=== PATIENT | female | born 1960 | race Caucasian/White ===

== ENCOUNTER 2016-09-11 11:42 | Emergency (ER) | payer MEDICAID, OTHER ==
[~2016-09-11] VITALS: Ht 162.6 cm; Wt 109.0 kg
[~2016-09-11 11:42] MED LIST: ALPR0.5T3 PO; CREON6 PO; ESTR1TAB PO; ZOLO50TA PO
[2016-09-11 11:45] VITALS: BP 154/87; PULSE 79; RESP 18; TEMP 98.2; O2SAT 97
--- NOTE | 2016-09-11 12:01 | PD ---
Physical Exam Date Seen by Provider: Sep 11, 2016 Time Seen by Provider: 11:58 Narrative 55 year old female presents to the emergency department for evaluation of epigastric abdominal pain for 5 days. She reports a history of gastroparesis and has had epigastric pain in the past, but this episode is worse. She reports decreased appetite, constipation, nausea/vomiting. Patient awaiting bed placement. Data Data Last Documented VS Vital Signs Date Time Temp Pulse Resp B/P Pulse Ox O2 Delivery O2 Flow Rate FiO2 09/11/16 11:45 98.2 79 18 154/87 97 MDM Supervised Visit with COCO: Miranda Price Sep 11, 2016 12:00
[2016-09-11] MEDS ORDERED: SODIUM CHLORIDE 0.9% FLUSH 10 ML FLUSH IV FLUSH PRN ×2 (12:15→12:30)
[2016-09-11] MEDS ORDERED: XANA1TAB2 PO (12:23)
--- NOTE | 2016-09-11 12:25 | PD ---
HPI Chief Complaint: Abdominal Pain Time Seen by Provider: 12:14 Travel History International Travel<30 days: No Contact w/Intl Traveler<30days: No Traveled to known affect area: No History of Present Illness HPI Patient is a 55-year-old female with stated history of previous cholecystectomy , appendectomy, hysterectomy and Gilmar-en-Y gastric bypass, gastroparesis who presents the emergency department with complaint of epigastric abdominal pain. Patient is not now approximate 5 days of crampy pain in the epigastrium. States that this is similar to her history of gastroparesis but more severe. She's had nausea, some vomiting. The vomiting has seemed to improve, but patient admits that she really hasn't been taking anything by mouth for fear of emesis. She has been having some persistent dry heaving. Notes associated constipation. Took an enema and MiraLAX with some product. She denies any history of bowel obstruction but has had several abdominal surgeries for lysis of adhesions due to pain. No fevers or chills, urinary symptoms. No hematemesis or hematochezia. PFSH Past Medical History Blood Disorders: No Anxiety: Yes Cancer: No Cardiovascular Problems: No Endocrine: No Genitourinary: Yes Immune Disorder: No Musculoskeletal: No Reproductive: No Respiratory: No ?: Not Past Surgical History Abdominal Surgery: Yes (GALLBLADDER 1998) AICD: No Arteriovenous Shunt: No Gynecologic Surgery: Yes (HYSTERECTOMY 1990, TUBAL LIGATION 1989) Insulin Pump: No Joint Replacement: No Oral Surgery: Yes (TONSILS 1992) Pacemaker: No Social History Alcohol Use: No Tobacco Use: Yes Substance Use: No Allergies-Medications (Allergen,Severity, Reaction): Coded Allergies: No Known Allergies (Verified , 09/11/16) Reported Meds & Prescriptions Reported Meds & Active Scripts Active Estradiol 1 Mg Tab 1 Mg PO DAILY Reported Xanax (Alprazolam) 1 Mg Tab 1 Mg PO Q6H PRN Review of Systems Except as stated in HPI: all other systems reviewed are Neg Physical Exam Narrative GENERAL: Well-appearing female in no acute distress SKIN: Focused skin assessment warm/dry. HEAD: Normocephalic. EYES: No scleral icterus. No injection or drainage. ENT: Mucous membranes pink and moist. NECK: Supple CARDIOVASCULAR: Regular rate and rhythm. No murmur appreciated. RESPIRATORY: No accessory muscle use. Clear to auscultation. Breath sounds equal bilaterally. GASTROINTESTINAL: Abdomen soft, moderate epigastric tenderness to palpation without rebound or guarding, nondistended. Well-healed old surgical scars MUSCULOSKELETAL: Gait normal NEUROLOGICAL: Awake and alert. Normal speech. PSYCHIATRIC: Appropriate mood and affect; insight and judgment normal. Data Data Last Documented VS Vital Signs Date Time Temp Pulse Resp B/P Pulse Ox O2 Delivery O2 Flow Rate FiO2 09/11/16 13:00 70 16 149/78 97 Room Air 09/11/16 11:45 98.2 Orders Complete Blood Count With Diff (09/11/16 12:15) Comprehensive Metabolic Panel (09/11/16 12:15) Lipase (09/11/16 12:15) Iv Access Insert/Monitor (09/11/16 12:15) Sodium Chloride 0.9% Flush (Ns Flush) (09/11/16 12:15) Ct Abd/Pel W Iv Contrast(Rout) (09/11/16 12:22) Ecg Monitoring (09/11/16 12:22) Oximetry (09/11/16 12:22) Morphine Inj (Morphine Inj) (09/11/16 12:30) Ondansetron Inj (Zofran Inj) (09/11/16 12:30) Sodium Chloride 0.9% Flush (Ns Flush) (09/11/16 12:30) Oral Contrast - Adult (09/11/16 12:36) Diatrizoate Liq ( Gastroignacia Liq) (09/11/16 12:58) Iohexol 350 Inj (Omnipaque 350 Inj) (09/11/16 14:39) Labs Laboratory Tests Test 09/11/16 12:40 White Blood Count 5.2 TH/MM3 Red Blood Count 4.44 MIL/MM3 Hemoglobin 11.5 GM/DL Hematocrit 35.6 % Mean Corpuscular Volume 80.1 FL Mean Corpuscular Hemoglobin 25.9 PG Mean Corpuscular Hemoglobin 32.3 % Concent Red Cell Distribution Width 15.6 % Platelet Count 177 TH/MM3 Mean Platelet Volume 7.6 FL Neutrophils (%) (Auto) 70.3 % Lymphocytes (%) (Auto) 19.4 % Monocytes (%) (Auto) 9.1 % Eosinophils (%) (Auto) 0.7 % Basophils (%) (Auto) 0.5 % Neutrophils # (Auto) 3.6 TH/MM3 Lymphocytes # (Auto) 1.0 TH/MM3 Monocytes # (Auto) 0.5 TH/MM3 Eosinophils # (Auto) 0.0 TH/MM3 Basophils # (Auto) 0.0 TH/MM3 CBC Comment DIFF FINAL Differential Comment Sodium Level 142 MEQ/L Potassium Level 3.7 MEQ/L Chloride Level 105 MEQ/L Carbon Dioxide Level 30.5 MEQ/L Anion Gap 7 MEQ/L Blood Urea Nitrogen 12 MG/DL Creatinine 0.66 MG/DL Estimat Glomerular Filtration 94 ML/MIN Rate Random Glucose 91 MG/DL Calcium Level 8.9 MG/DL Total Bilirubin 0.6 MG/DL Aspartate Amino Transf 14 U/L (AST/SGOT) Alanine Aminotransferase 12 U/L (ALT/SGPT) Alkaline Phosphatase 80 U/L Total Protein 7.4 GM/DL Albumin 3.9 GM/DL Lipase 157 U/L [facility] Medical Decision Making Medical Screen Exam Complete: Yes Emergency Medical Condition: Yes Medical Record Reviewed: Yes Differential Diagnosis 55-year-old female with multiple abdominal surgeries including Gilmar-en-Y gastric bypass here with complaint of 5 days of epigastric pain, nausea vomiting and constipation. Differential includes gastritis, peptic ulcer disease, gastroparesis, pancreatitis, hepatobiliary pathology, bowel obstruction , internal hernia. Narrative Course Patient placed on monitor, IV established and blood obtained. Given morphine and Zofran for symptom control. CBC, CMP, lipase obtained and unremarkable. Patient still uncomfortable and given repeat doses Zofran, Dilaudid. CT abdomen and pelvis showed mild biliary ductal dilatation likely from her previous cholecystectomy. Previous bowel surgery. No free air or abscess, fluid or evidence of obstruction. 2.6 cm cystic mass in the left adnexal region which will need outpatient follow-up. Patient was able to tolerate oral contrast without any difficulties and will be discharged home. Diagnosis Primary Impression: Gastroparesis Additional Impressions: Gastritis Qualified Code: K29.70 - Gastritis without bleeding, unspecified chronicity, unspecified gastritis type Ovarian cyst Qualified Code: N83.202 - Cyst of left ovary Referrals: Primary Care Physician call for appointment Additional Instructions: Nausea and pain medications as needed. Follow-up with primary for outpatient workup of ovarian cysts as discussed. Med/Other Pt SpecificInfo: Prescription(s) given Scripts Hydrocodone-Acetaminophen (Bennett)5-325 mg Tab1-2 Tab PO Q6H PRN (PAIN) #20 TAB Ref 0 Prov:Jeri Fitch MD 09/11/16 Ondansetron Odt (Zofran Odt)8 Mg Tab8 Mg SL Q8H PRN (NAUSEA OR VOMITING) #20 TAB Ref 0 Prov:Jeri Fitch MD 09/11/16 Disposition: 01 DISCHARGE HOME Condition: Stable Jeri Fitch MD Sep 11, 2016 12:25
[2016-09-11] MEDS ORDERED: ONDANSETRON HCL 4 MG/2 ML VIAL IVP ONE ×2 (12:30→15:30)
[2016-09-11] MEDS ORDERED: MORPHINE SULFATE 4 MG/ML INJ IV PUSH ONE (12:30)
[2016-09-11 12:52] LABS: AUTOMATED NEUTROPHIL # 3.6 TH/MM3 (1.8-7.7); BASOPHIL % 0.5 % (0.0-2.0); EOSINOPHIL % 0.7 % (0.0-4.0); HEMATOCRIT 35.6 % (35.0-46.0); HEMO FLAGS DIFF FINAL; LYMPH % 19.4 % (9.0-44.0); MEAN CELL VOLUME 80.1 FL (80.0-100.0); MEAN CORPUSCULAR HEMOGLOBIN 25.9 PG (27.0-34.0); MEAN CORPUSCULAR HGB CONC 32.3 % (32.0-36.0); MONO % 9.1 % (0.0-8.0); NEUT % 70.3 % (16.0-70.0); PLATELET COUNT 177 TH/MM3 (150-450); RED BLOOD COUNT 4.44 MIL/MM3 (4.00-5.30); RED CELL DISTRIBUTION WIDTH 15.6 % (11.6-17.2); WHITE BLOOD COUNT 5.2 TH/MM3 (4.0-11.0)
[2016-09-11] MEDS ORDERED: DIATRIZOATE MEGLUM/DIATRIZOATE SOD 9 ML CUP ONE (12:58)
[2016-09-11 13:00] VITALS: BP 149/78; PULSE 70; RESP 16; O2SAT 97
[2016-09-11 13:08] LABS: ALT (GPT) 12 U/L (10-53); ANION GAP 7 MEQ/L (5-15); AST (GOT) 14 U/L (15-37); BICARBONATE 30.5 MEQ/L (21.0-32.0); BLOOD UREA NITROGEN 12 MG/DL (7-18); CHLORIDE 105 MEQ/L (98-107); GLOMERULAR FILTRATION RATE 94 ML/MIN (>89); POTASSIUM 3.7 MEQ/L (3.5-5.1); SODIUM (NA) 142 MEQ/L (136-145)
[2016-09-11 13:11] LABS: ALKALINE PHOSPHATASE 80 U/L (45-117); TOTAL BILIRUBIN ADULT 0.6 MG/DL (0.2-1.0)
[2016-09-11] MEDS ORDERED: IOHEXOL 350 MG/ML 10 ML VIAL (for RAD DIAG) IV ONE (14:39)
--- NOTE | 2016-09-11 15:03 | RADRPT ---
EXAM DATE/TIME: 09/11/2016 14:21 [facility] COMPARISON: No previous studies available for comparison. INDICATIONS : Epigastric pain with nausea, vomiting, and constipation. IV CONTRAST: 90 cc Omnipaque 350 (iohexol) IV ORAL CONTRAST: Prescribed oral contrast ingested. RADIATION DOSE: 9.96 CTDIvol (mGy) MEDICAL HISTORY : Gastroparesis. SURGICAL HISTORY : Appendectomy. Cholecystectomy. Hysterectomy Gastric bypass ENCOUNTER: Initial ACUITY: 4 - 6 days PAIN SCALE: 4/10 LOCATION: Bilateral upper quadrant TECHNIQUE: Volumetric scanning of the abdomen and pelvis was performed. Using automated exposure control and adjustment of the mA and/or kV according to patient size, radiation dose was kept as low as reasonably achievable to obtain optimal diagnostic quality images. FINDINGS: Lung bases are clear. There is no pericardial effusion. There is mild intrahepatic bi liary ductal dilatation with the common duct dilated into the head of the pancreas. Common duct in th e head of the pancreas measures 8 mm. Spleen is unremarkable. Pancreas other than dilated common anand t is unremarkable. There is mild dilatation of the pancreatic duct without calcifications. Adrenal glands are unremarkable. There is symmetrical renal function without evidence of renal mass. Previous abdominal surgery is noted. Evidence for previous bowel surgery is noted. Pelvic contents are remarkable only for a small 2.6 cm cystic mass in the left adnexal region. Abdom inal wall is intact. CONCLUSION: 1. Mild intrahepatic biliary ductal dilatation with prominent common duct. 2. Evidence for extensive previous bowel surgery. 3. 2.6 cm cystic mass in the left adnexal region. 4. There is no free fluid, abscess or free air. Tyson Iqbal MD FACR on September 11, 2016 at 14:51 Board Certified Radiologist. This report was verified electronically.
[2016-09-11] MEDS ORDERED: NORC5TAB PO (15:20)
[2016-09-11] MEDS ORDERED: ZOFR8TAB4 SL (15:20)
[2016-09-11] MEDS ORDERED: HYDROmorphone HCL PF 1 MG/ML VIAL IVS ONE (15:30)
[2016-09-11] MEDS ORDERED: ACETAMINOPHEN/HYDROcodone 325 MG/5 MG TAB PO ONE (15:30)
[2016-09-22] MEDS ORDERED: PERC5TAB12 PO (10:44)
[2016-09-22] MEDS ORDERED: PERI8.6T PO (10:44)
[2016-10-28] MEDS ORDERED: OMEP40CA2 PO (14:56)
[2016-10-28] MEDS ORDERED: AMIT8CAP6 PO (14:56)
[2016-10-28] MEDS ORDERED: PROC5TAB PO (14:56)
[2016-10-28] MEDS ORDERED: XANA1TAB2 PO (14:58)
== END 2016-09-11 16:11 | disposition home or self-care (01) ==
LOC: NEPD 11:42
DX: K31.84 Gastroparesis (principal); K29.70 Gastritis, unspecified, without bleeding; N83.202 Unspecified ovarian cyst, left side; K59.00 Constipation, unspecified; R11.2 Nausea with vomiting, unspecified; Z72.0 Tobacco use
CPT/HCPCS: 74177; 80053; 83690; 85025; 96374; 96375; 96376; 99284; J1170; J2270; J2405; Q9963; Q9967

== ENCOUNTER 2016-09-16 10:14 | Emergency (ER) | payer MEDICAID ==
[~2016-09-16] VITALS: Ht 165.1 cm; Wt 64.0 kg
[~2016-09-16 10:14] MED LIST changes: -ALPR0.5T3 PO; -CREON6 PO; +NORC5TAB PO; +XANA1TAB2 PO; +ZOFR8TAB4 SL; -ZOLO50TA PO
[2016-09-16 10:17] VITALS: BP 126/79; PULSE 86; RESP 18; TEMP 97.9; O2SAT 99
[2016-09-16] MEDS ORDERED: SODIUM CHLOR 0.9% 1000 ML INJ 1,000 ML IV SCH (10:44)
[2016-09-16] MEDS ORDERED: ERYTHROMYCIN EC 250 MG TABEC PO ONE (10:45)
[2016-09-16] MEDS ORDERED: KETOROLAC TROMETHAMINE 30 MG/ML (IVP) VIAL IV PUSH ONE (10:45)
[2016-09-16] MEDS ORDERED: METOCLOPRAMIDE HCL 10 MG/2 ML VIAL IV PUSH ONE (10:45)
[2016-09-16] MEDS ORDERED: SODIUM CHLORIDE 0.9% FLUSH 10 ML FLUSH IV FLUSH PRN (10:45)
[2016-09-16] MEDS ORDERED: CREO3000 PO (10:52)
--- NOTE | 2016-09-16 10:55 | PD ---
HPI Chief Complaint: Abdominal Pain Time Seen by Provider: 10:35 Travel History International Travel<30 days: No Contact w/Intl Traveler<30days: No Traveled to known affect area: No History of Present Illness HPI This is a 55-year-old female who has a history of multiple abdominal surgeries including an appendectomy, cholecystectomy, Gilmar-en-Y gastric bypass, hysterectomy and a known diagnosis of gastroparesis who presents to the emergency department with 2 weeks of epigastric abdominal pain described as constant, severe, worse with eating, associated with multiple episodes of vomiting. She denies any fevers or chills. She says she's had pain like this but never this prolonged and constant. She was hospitalized last January at [facility] for similar symptoms. She used to follow with Dr. Bojorquez but she was unable to pay her hospital bill so that office will no longer see her. She was seen in the emergency department one week ago and had a normal CT scan and normal labs. She was discharged on Guin. She re-presents with worsening symptoms that have not improved. PFSH Past Medical History Blood Disorders: No Anxiety: Yes Cancer: No Cardiovascular Problems: No Endocrine: No Gastrointestinal Disorders: Yes (GASTROPARESIS) Genitourinary: Yes Immune Disorder: No Musculoskeletal: No Reproductive: No Respiratory: No Seizures: Yes (SEIZURES R/T "STRESS OR PAIN") ?: Not : 4 Para: 3 Tubal Ligation: Yes Past Surgical History Abdominal Surgery: Yes (GALLBLADDER 1998, abd adhesions) AICD: No Appendectomy: Yes Arteriovenous Shunt: No Cholecystectomy: Yes Gynecologic Surgery: Yes (HYSTERECTOMY 1990, TUBAL LIGATION 1989) Hysterectomy: Yes Insulin Pump: No Joint Replacement: No Oral Surgery: Yes (TONSILS 1992) Pacemaker: No Other Surgery: Yes (HERNIA REPAIR WITH MESH ) Social History Alcohol Use: No Tobacco Use: No (DENIES) Substance Use: Yes (MARIJUANA OCCASIONALLY ) Allergies-Medications (Allergen,Severity, Reaction): Coded Allergies: No Known Allergies (Verified , 09/16/16) Reported Meds & Prescriptions Reported Meds & Active Scripts Active Zofran Odt (Ondansetron Odt) 8 Mg Tab 8 Mg SL Q8H PRN Estradiol 1 Mg Tab 1 Mg PO DAILY Reported Creon (Pancrelipase) 3,000-9,500-15,000 Units Cap 1 Cap PO TIDPC Xanax (Alprazolam) 1 Mg Tab 1 Mg PO Q6H PRN Review of Systems Except as stated in HPI: all other systems reviewed are Neg Physical Exam Narrative GENERAL: Tearful, uncomfortable appearing SKIN: Focused skin assessment warm and dry. HEAD: Atraumatic. Normocephalic. EYES: Pupils equal and round. No injection or drainage. ENT: Moist mucous membranes NECK: Trachea midline. CARDIOVASCULAR: Regular rate and rhythm. No murmur appreciated. RESPIRATORY: Clear to auscultation. Breath sounds equal bilaterally. GASTROINTESTINAL: Abdomen soft, diffusely tender to palpation with no rebound or guarding. MUSCULOSKELETAL: No obvious deformities. NEUROLOGICAL: Awake and alert. No obvious cranial nerve deficits. Moving all extremities. PSYCHIATRIC: Appropriate mood and affect; insight and judgment normal. Data Data Last Documented VS Vital Signs Date Time Temp Pulse Resp B/P Pulse Ox O2 Delivery O2 Flow Rate FiO2 09/16/16 10:17 97.9 86 18 126/79 99 Room Air Orders Complete Blood Count With Diff (09/16/16 10:44) Comprehensive Metabolic Panel (09/16/16 10:44) Lipase (09/16/16 10:44) Urinalysis - C+S If Indicated (09/16/16 10:44) Iv Access Insert/Monitor (09/16/16 10:44) Ecg Monitoring (09/16/16 10:44) Oximetry (09/16/16 10:44) Sodium Chlor 0.9% 1000 Ml Inj (Ns 1000 M (09/16/16 10:44) Sodium Chloride 0.9% Flush (Ns Flush) (09/16/16 10:45) Abdomen, Kub Only (09/16/16 10:44) Metoclopramide Inj (Reglan Inj) (09/16/16 10:45) Ketorolac Inj (Toradol Inj) (09/16/16 10:45) Erythromycin Ec (Erythromycin Ec) (09/16/16 10:45) Hydromorphone Pf Inj (Dilaudid Pf Inj) (09/16/16 11:00) Labs Laboratory Tests Test 09/16/16 10:55 White Blood Count 5.4 TH/MM3 Red Blood Count 4.51 MIL/MM3 Hemoglobin 11.9 GM/DL Hematocrit 36.2 % Mean Corpuscular Volume 80.3 FL Mean Corpuscular Hemoglobin 26.5 PG Mean Corpuscular Hemoglobin 33.0 % Concent Red Cell Distribution Width 15.8 % Platelet Count 169 TH/MM3 Mean Platelet Volume 7.7 FL Neutrophils (%) (Auto) 77.3 % Lymphocytes (%) (Auto) 14.4 % Monocytes (%) (Auto) 7.7 % Eosinophils (%) (Auto) 0.3 % Basophils (%) (Auto) 0.3 % Neutrophils # (Auto) 4.2 TH/MM3 Lymphocytes # (Auto) 0.8 TH/MM3 Monocytes # (Auto) 0.4 TH/MM3 Eosinophils # (Auto) 0.0 TH/MM3 Basophils # (Auto) 0.0 TH/MM3 CBC Comment DIFF FINAL Differential Comment Sodium Level 142 MEQ/L Potassium Level 3.5 MEQ/L Chloride Level 104 MEQ/L Carbon Dioxide Level 30.9 MEQ/L Anion Gap 7 MEQ/L Blood Urea Nitrogen 14 MG/DL Creatinine 0.62 MG/DL Estimat Glomerular Filtration 101 ML/MIN Rate Random Glucose 85 MG/DL Calcium Level 8.9 MG/DL Total Bilirubin 0.6 MG/DL Aspartate Amino Transf 13 U/L (AST/SGOT) Alanine Aminotransferase 18 U/L (ALT/SGPT) Alkaline Phosphatase 119 U/L Total Protein 7.2 GM/DL Albumin 3.8 GM/DL Lipase 132 U/L [facility] Medical Decision Making Medical Screen Exam Complete: Yes Emergency Medical Condition: Yes Interpretation(s) afebrile, no tachycardia, normotensive No leukocytosis Electrolytes are reassuring Lipase is normal KUB: No acute process Differential Diagnosis Gastritis, peptic ulcer disease, gastroparesis, pancreatitis and bowel obstruction Narrative Course This is a 55-year-old female who has a history of gastroparesis and recurrent chronic abdominal pain who presents to the emergency department with abdominal pain and vomiting that's been present for 2 weeks. She does not appear dehydrated on exam. She was placed on a monitor and an IV was established. Labs are reassuring. A KUB was obtained which was reassuring. Patient just had a CT abdomen and pelvis on 09/11 which was reassuring. She was given IV hydration, Reglan and erythromycin. Her symptoms improved. Patient follows with Dr. Mejia in the resident clinic. I advised her to follow-up with her primary care physician to obtain a referral for GI. She could have an ulcer or gastritis which are contributing to her symptoms. She'll be discharged on erythromycin and Reglan. Diagnosis Primary Impression: Chronic abdominal pain Patient Instructions: General Instructions Additional Instructions: If you develop severe or worsening abdominal pain, fever>100.4, persistent vomiting or inability to eat or drink return to the emergency department immediately. Follow up with your primary care physician in 1-2 days for a check-up. Med/Other Pt SpecificInfo: Prescription(s) given Scripts Ranitidine 150 Mg [id number] Mg PO BID #60 TAB Ref 0 Prov:Bianka Varma MD 09/16/16 Erythromycin Base 250 Mg Ahe237 Mg PO TIDAC 7 Days Ref 0 Prov:Bianka Varma MD 09/16/16 Metoclopramide (Reglan)10 Mg Tab10 Mg PO QID PRN (NAUSEA) #20 TAB Ref 0 Prov:Bianka Varma MD 09/16/16 Disposition: 01 DISCHARGE HOME Condition: Stable Bianka Varma MD Sep 16, 2016 10:55
[2016-09-16] MEDS ORDERED: HYDROmorphone HCL PF 1 MG/ML VIAL IV PUSH ONE (11:00)
[2016-09-16 11:18] LABS: AUTOMATED NEUTROPHIL # 4.2 TH/MM3 (1.8-7.7); BASOPHIL % 0.3 % (0.0-2.0); EOSINOPHIL % 0.3 % (0.0-4.0); HEMATOCRIT 36.2 % (35.0-46.0); HEMO FLAGS DIFF FINAL; LYMPH % 14.4 % (9.0-44.0); LYMPHOCYTE # 0.8 TH/MM3 (1.0-4.8); MEAN CELL VOLUME 80.3 FL (80.0-100.0); MEAN CORPUSCULAR HEMOGLOBIN 26.5 PG (27.0-34.0); MONO % 7.7 % (0.0-8.0); NEUT % 77.3 % (16.0-70.0); PLATELET COUNT 169 TH/MM3 (150-450); RED BLOOD COUNT 4.51 MIL/MM3 (4.00-5.30); RED CELL DISTRIBUTION WIDTH 15.8 % (11.6-17.2); WHITE BLOOD COUNT 5.4 TH/MM3 (4.0-11.0)
--- NOTE | 2016-09-16 11:26 | RADRPT ---
EXAM DATE/TIME: 09/16/2016 11:23 [facility] COMPARISON: No previous studies available for comparison. INDICATIONS : Abdominal pain. MEDICAL HISTORY : None. SURGICAL HISTORY : Cholecystectomy. Appendectomy. Hysterectomy. Bowel adhesion removal. ENCOUNTER: Initial ACUITY: 2 weeks PAIN SCORE: 10/10 LOCATION: Left abdomen. FINDINGS: Supine view of the abdomen was performed. The abdominal bowel gas pattern is normal. No abnormal ma sses, calcifications, or organomegaly is seen. The osseous structures are unremarkable. Numerous jarocho gical tacks are noted overlying upper abdomen. Suture material left upper quadrant and cholecystectom y clips right upper quadrant. CONCLUSION: No acute disease. Morris Jenkins MD on September 16, 2016 at 11:24 Board Certified Radiologist. This report was verified electronically.
[2016-09-16 11:42] LABS: ALT (GPT) 18 U/L (10-53); ANION GAP 7 MEQ/L (5-15); AST (GOT) 13 U/L (15-37); BICARBONATE 30.9 MEQ/L (21.0-32.0); BLOOD UREA NITROGEN 14 MG/DL (7-18); CHLORIDE 104 MEQ/L (98-107); GLOMERULAR FILTRATION RATE 101 ML/MIN (>89); POTASSIUM 3.5 MEQ/L (3.5-5.1); SODIUM (NA) 142 MEQ/L (136-145)
[2016-09-16 11:49] LABS: ALKALINE PHOSPHATASE 119 U/L (45-117); TOTAL BILIRUBIN ADULT 0.6 MG/DL (0.2-1.0)
[2016-09-16] MEDS ORDERED: RANI150T PO (12:03)
[2016-09-16] MEDS ORDERED: REGL10TA5 PO (12:03)
[2016-09-16] MEDS ORDERED: ERYT250T13 PO (12:03)
[2016-09-22] MEDS ORDERED: PERI8.6T PO (10:44)
[2016-09-22] MEDS ORDERED: PERC5TAB12 PO (10:44)
[2016-10-28] MEDS ORDERED: PROC5TAB PO (14:56)
[2016-10-28] MEDS ORDERED: OMEP40CA2 PO (14:56)
[2016-10-28] MEDS ORDERED: AMIT8CAP6 PO (14:56)
[2016-10-28] MEDS ORDERED: XANA1TAB2 PO (14:58)
== END 2016-09-16 12:23 | disposition home or self-care (01) ==
LOC: NEPD 10:14
DX: R10.9 Unspecified abdominal pain (principal); Z98.84 Bariatric surgery status; R10.13 Epigastric pain; K31.84 Gastroparesis; F41.9 Anxiety disorder, unspecified
CPT/HCPCS: 74000; 80053; 83690; 85025; 96374; 96375; 99284; J1170; J2765; J7030

== ENCOUNTER 2016-09-30 10:01 | Observation (INO) | payer MEDICAID ==
[~2016-09-30] VITALS: Ht 162.6 cm; Wt 65.0 kg
[~2016-09-30 10:01] MED LIST changes: +CREO3000 PO; +ERYT250T13 PO; -NORC5TAB PO; +PERC5TAB12 PO; +PERI8.6T PO; +RANI150T PO; +REGL10TA5 PO
[2016-09-30 10:03] VITALS: BP 155/67; PULSE 85; RESP 17; TEMP 98.2; O2SAT 97
[2016-09-30 10:19] VITALS: BP 138/79; PULSE 65; RESP 18; O2SAT 99
[2016-09-30] MEDS ORDERED: SODIUM CHLORIDE 0.9% FLUSH 10 ML FLUSH IVF PRN (10:45)
--- NOTE | 2016-09-30 10:47 | PD ---
HPI Chief Complaint: Chest Pain Time Seen by Provider: 10:45 Travel History International Travel<30 days: No Contact w/Intl Traveler<30days: No Traveled to known affect area: No History of Present Illness HPI 55-year-old female with history of gastroparesis, currently referred to GI doctor by her primary care physician, presents to the ER today because she states that last night she couldn't sleep, was anxious, and started getting substernal chest pains with radiation down the left arm. She states that the pain is currently a 8 out of 10. She does not know any exacerbating or alleviating factors. She has been nauseous but denies any vomiting or any other symptoms. Modifying Factors: None Associated Signs & Symptoms: Abdominal pains, nausea, chest pains Risk Factors: Gastroparesis PFSH Past Medical History Blood Disorders: No Anxiety: Yes Cancer: No Cardiovascular Problems: No Endocrine: No Gastrointestinal Disorders: Yes (GASTROPARESIS) Genitourinary: Yes Immune Disorder: No Musculoskeletal: No Reproductive: No Respiratory: No Seizures: Yes (SEIZURES R/T "STRESS OR PAIN") ?: Not : 4 Para: 3 Tubal Ligation: Yes Past Surgical History Abdominal Surgery: Yes (GALLBLADDER 1998, abd adhesions) AICD: No Appendectomy: Yes Arteriovenous Shunt: No Cholecystectomy: Yes Gynecologic Surgery: Yes (HYSTERECTOMY 1990, TUBAL LIGATION 1989) Hysterectomy: Yes Insulin Pump: No Joint Replacement: No Oral Surgery: Yes (TONSILS 1992) Pacemaker: No Other Surgery: Yes (HERNIA REPAIR WITH MESH ) Social History Alcohol Use: No Tobacco Use: No (DENIES) Substance Use: Yes (MARIJUANA OCCASIONALLY ) Allergies-Medications (Allergen,Severity, Reaction): Coded Allergies: No Known Allergies (Verified , 09/22/16) Reported Meds & Prescriptions Reported Meds & Active Scripts Active Chayito-Colace (Sennosides-Docusate Sodium) 8.6-50 Mg Tab 2 Tab PO DAILY May increased dose to BID, as needed to acheive regular BM's Percocet (Oxycodone-Acetaminophen) 5-325 mg Tab 1 Tab PO Q6H PRN Ranitidine (Ranitidine HCl) 150 Mg Tab 150 Mg PO BID Estradiol 1 Mg Tab 1 Mg PO DAILY Reported Xanax (Alprazolam) 1 Mg Tab 1 Mg PO Q6H PRN Review of Systems Except as stated in HPI: all other systems reviewed are Neg Physical Exam Narrative GENERAL: Well-developed anxious appearing middle age white female patient who is in mild distress. Awake and oriented 3. SKIN: Focused skin assessment warm/dry. HEAD: Atraumatic. Normocephalic. EYES: Pupils equal and round. No scleral icterus. No injection or drainage. ENT: No nasal bleeding or discharge. Mucous membranes pink and moist. NECK: Trachea midline. No JVD. CARDIOVASCULAR: Regular rate and rhythm. No murmur appreciated. Pulses are present and equal bilaterally. RESPIRATORY: No accessory muscle use. Clear to auscultation. Breath sounds equal bilaterally. GASTROINTESTINAL: Abdomen soft, mild diffuse abdominal tenderness without guarding or rebound, nondistended. Hepatic and splenic margins not palpable. MUSCULOSKELETAL: No obvious deformities. No clubbing. No cyanosis. No edema. NEUROLOGICAL: Awake and alert. No obvious cranial nerve deficits. Motor grossly within normal limits. Normal speech. PSYCHIATRIC: Appropriate mood and affect; insight and judgment normal. Data Data Last Documented VS Vital Signs Date Time Temp Pulse Resp B/P Pulse Ox O2 Delivery O2 Flow Rate FiO2 09/30/16 10:19 65 18 138/79 99 Room Air 09/30/16 10:03 98.2 Orders Electrocardiogram (09/30/16 ) Electrocardiogram (09/30/16 10:36) Ckmb (Isoenzyme) Profile (09/30/16 10:36) Complete Blood Count With Diff (09/30/16 10:36) Comprehensive Metabolic Panel (09/30/16 10:36) Magnesium (Mg) (09/30/16 10:36) Prothrombin Time / Inr (Pt) (09/30/16 10:36) Act Partial Throm Time (Ptt) (09/30/16 10:36) Troponin I (09/30/16 10:36) Lipase (09/30/16 10:36) Chest, Single Ap (09/30/16 10:36) Ecg Monitoring (09/30/16 10:36) Bilateral Bp Monitoring (09/30/16 10:36) Iv Access Insert/Monitor (09/30/16 10:36) Oximetry (09/30/16 10:36) Oxygen Administration (09/30/16 10:36) Sodium Chloride 0.9% Flush (Ns Flush) (09/30/16 10:45) Labs Laboratory Tests Test 09/30/16 10:30 White Blood Count 4.5 TH/MM3 Red Blood Count 4.53 MIL/MM3 Hemoglobin 12.1 GM/DL Hematocrit 36.2 % Mean Corpuscular Volume 80.0 FL Mean Corpuscular Hemoglobin 26.7 PG Mean Corpuscular Hemoglobin 33.4 % Concent Red Cell Distribution Width 15.6 % Platelet Count 223 TH/MM3 Mean Platelet Volume 8.2 FL Neutrophils (%) (Auto) 63.8 % Lymphocytes (%) (Auto) 26.0 % Monocytes (%) (Auto) 9.2 % Eosinophils (%) (Auto) 0.5 % Basophils (%) (Auto) 0.5 % Neutrophils # (Auto) 2.9 TH/MM3 Lymphocytes # (Auto) 1.2 TH/MM3 Monocytes # (Auto) 0.4 TH/MM3 Eosinophils # (Auto) 0.0 TH/MM3 Basophils # (Auto) 0.0 TH/MM3 CBC Comment DIFF FINAL Differential Comment Prothrombin Time 11.4 SEC Prothromb Time International 1.0 RATIO Ratio Activated Partial 25.1 SEC Thromboplast Time Sodium Level 142 MEQ/L Potassium Level 3.6 MEQ/L Chloride Level 106 MEQ/L Carbon Dioxide Level 29.1 MEQ/L Anion Gap 7 MEQ/L Blood Urea Nitrogen 15 MG/DL Creatinine 0.72 MG/DL Estimat Glomerular Filtration 85 ML/MIN Rate Random Glucose 104 MG/DL Calcium Level 8.9 MG/DL Magnesium Level 2.2 MG/DL Total Bilirubin 0.5 MG/DL Aspartate Amino Transf 11 U/L (AST/SGOT) Alanine Aminotransferase 14 U/L (ALT/SGPT) Alkaline Phosphatase 90 U/L Total Creatine Kinase 53 U/L Troponin I LESS THAN 0.02 NG/ML Total Protein 7.4 GM/DL Albumin 3.7 GM/DL Lipase 175 U/L [facility] Medical Decision Making Medical Screen Exam Complete: Yes Emergency Medical Condition: Yes Medical Record Reviewed: Yes Interpretation(s) EKG shows NSR, no ST elevation or depression, and no arrhythmias. No significant T-wave inversions. Laboratory Tests Test 09/30/16 10:30 Mean Corpuscular Hemoglobin 26.7 PG (27.0-34.0) Monocytes (%) (Auto) 9.2 % (0.0-8.0) Estimat Glomerular Filtration 85 ML/MIN (>89) Rate Aspartate Amino Transf 11 U/L (15-37) (AST/SGOT) Troponin I LESS THAN 0.02 NG/ML (0.02-0.05) Last 24 hours Impressions Chest X-Ray 09/30/16 1036 Signed Impressions: Service Date/Time: Friday, September 30, 2016 10:53 - CONCLUSION: No acute disease. Tyson Iqbal MD FACR Differential Diagnosis Abdominal pains, chest pains, anxietyanxiety attack versus gastritis versus gastroparesis versus gastroenteritis versus ACS versus dysrhythmias Narrative Course EKG did not show any signs of dysrhythmias. Lab work is unremarkable for any significant metabolic issues. Cardiac enzymes are negative. At this point, patient is post to get connected as an outpatient with GI doctor. Abdomen is fairly benign and I am not suspecting that there is an underlying acute intra- abdominal process at this point. However, the chest pain is new and My plan would be to admit her for further evaluation of chest pain in the chest pain center. Diagnosis Primary Impression: Chest pain Admitting Information Admitting Physician Requests: Admit Miya Lucia MD Sep 30, 2016 10:47
[2016-09-30 11:05] LABS: AUTOMATED NEUTROPHIL # 2.9 TH/MM3 (1.8-7.7); BASOPHIL % 0.5 % (0.0-2.0); EOSINOPHIL % 0.5 % (0.0-4.0); HEMATOCRIT 36.2 % (35.0-46.0); HEMO FLAGS DIFF FINAL; LYMPHOCYTE # 1.2 TH/MM3 (1.0-4.8); MEAN CORPUSCULAR HEMOGLOBIN 26.7 PG (27.0-34.0); MEAN CORPUSCULAR HGB CONC 33.4 % (32.0-36.0); MONO % 9.2 % (0.0-8.0); NEUT % 63.8 % (16.0-70.0); PLATELET COUNT 223 TH/MM3 (150-450); RED BLOOD COUNT 4.53 MIL/MM3 (4.00-5.30); RED CELL DISTRIBUTION WIDTH 15.6 % (11.6-17.2); WHITE BLOOD COUNT 4.5 TH/MM3 (4.0-11.0)
[2016-09-30 11:15] LABS: APTT (PATIENT) 25.1 SEC (24.3-30.1); PROTHROMBIN TIME - PATIENT 11.4 SEC (9.8-11.6)
--- NOTE | 2016-09-30 11:17 | RADRPT ---
EXAM DATE/TIME: 09/30/2016 10:53 [facility] COMPARISON: No previous studies available for comparison. INDICATIONS : Chest and abdomen pain. MEDICAL HISTORY : None. SURGICAL HISTORY : None. ENCOUNTER: Initial ACUITY: 1 day PAIN SCORE: Non-responsive. LOCATION: Bilateral chest FINDINGS: A single view of the chest demonstrates the lungs to be symmetrically aerated without evidence of mas s, infiltrate or effusion. The cardiomediastinal contours are unremarkable. Osseous structures are intact. CONCLUSION: No acute disease. Tyson Iqbal MD FACR on September 30, 2016 at 11:15 Board Certified Radiologist. This report was verified electronically.
[2016-09-30 11:24] LABS: ANION GAP 7 MEQ/L (5-15); AST (GOT) 11 U/L (15-37); BICARBONATE 29.1 MEQ/L (21.0-32.0); BLOOD UREA NITROGEN 15 MG/DL (7-18); CHLORIDE 106 MEQ/L (98-107); GLOMERULAR FILTRATION RATE 85 ML/MIN (>89); MAGNESIUM 2.2 MG/DL (1.5-2.5); POTASSIUM 3.6 MEQ/L (3.5-5.1); SODIUM (NA) 142 MEQ/L (136-145)
[2016-09-30 11:31] LABS: ALKALINE PHOSPHATASE 90 U/L (45-117); ALT (GPT) 14 U/L (10-53); TOTAL BILIRUBIN ADULT 0.5 MG/DL (0.2-1.0)
[2016-09-30 11:42] LABS: CREATINE KINASE 53 U/L (26-192)
[2016-09-30] MEDS ORDERED: NITROGLYCERIN 0.4 MG SL 25 TABS/BTL SL PRN (13:00)
[2016-09-30] MEDS ORDERED: ACETAMINOPHEN 500 MG CPLT PO PRN (13:00)
[2016-09-30 13:47] VITALS: BP 131/82; PULSE 65; RESP 18; O2SAT 99
--- NOTE | 2016-09-30 13:48 | HHI.HP ---
HPI Primary Care Physician Paty De Souza MD Chief Complaint Chest and abdominal pain History of Present Illness 55-year-old female with history of gastroparesis and multiple abdominal surgeries presents to the emergency room today for further evaluation of abdominal and chest pain. States she has had abdominal discomfort since September 08 and has followed up with her PCP and is awaiting a referral to a GI physician. She was seen by emilia Lim while at [facility] however unable to follow-up with him due to insurance. She is highly anxious and concerned that she will become impacted. Endorses 3 prior admissions to hospitals for impaction. Last bowel movement yesterday stool small in amount. Last evening 7 PM she had small amount of potatoes. In regards to her chest pain onset yesterday afternoon at 2 PM. Location left anterior chest. Radiation to her left shoulder and left arm. Pain level 6/10. Described as "spasms and sharp pain." Duration 45 minutes. No known precipitating or relieving factors. She has never had chest pain in the past. She is concerned her abdominal discomfort and chronic GI problems is contributing to her chest pain. Review of Systems General: No fatigue,weakness, fever, chills, or recent illness HEENT: No WALTERS, no vision changes, no nasal congestion or drainage, no dysphasia CV: As stated above. No current chest pain or pressure. No palpitations, intermittent leg pain, or dizziness RESP: No SOB, cough, wheeze, or URI GI: Endorses chronic abdominal pain since September for with history of stroke paresis. Awaiting a referral to GI. Has had abdominal x-ray and CAT scan completed within the last 2 weeks. Vomits after each meal. History of constipation. Last bowel movement yesterday. Small amount of stool. No diarrhea. Has been hospitalized 3 in the past for impaction. No melena or blood in the stool. : No dysuria, urgency, frequency EXT: No lower leg edema, no paraesthesias MS: No discomfort or change in ROM NEURO: No change in memory, dizziness, difficulty with balance, LOC, motor/ sensory deficits PSYCH: Situational stress regarding abdominal pain. No anxiety or depression SKIN: No rashes, no concerning lesions Past Family Social History Allergies: Coded Allergies: No Known Allergies (Verified , 09/22/16) Past Medical History Anxiety, gastroparesis, constipation, chronic abdominal pain 6 years Past Surgical History Hysterectomy, cholecystectomy, gastric [id number], multiple lysis of adhesions surgeries, hernia repair Reported Medications Reported Meds & Active Scripts Active Chayito-Colace (Sennosides-Docusate Sodium) 8.6-50 Mg Tab 2 Tab PO DAILY May increased dose to BID, as needed to acheive regular BM's Percocet (Oxycodone-Acetaminophen) 5-325 mg Tab 1 Tab PO Q6H PRN Ranitidine (Ranitidine HCl) 150 Mg Tab 150 Mg PO BID Estradiol 1 Mg Tab 1 Mg PO DAILY Xanax (Alprazolam) 1 Mg Tab 1 Mg PO Q6H PRN Active Ordered Medications Current Medications Medications (Trade) Dose Ordered Sig/Tyler Route Start Time Stop Time Status Last Admin (NS Flush) 2 ml UNSCH PRN IVF 09/30/16 10:45 (NS Flush) 2 ml BID IV FLUSH 09/30/16 21:00 (Tylenol) 500 mg Q4H PRN PO 09/30/16 13:00 (Zofran Inj) 4 mg Q6H PRN IV 09/30/16 13:00 (Nitrostat Sl) 0.4 mg Q5M PRN SL 09/30/16 13:00 (Aspirin) 325 mg DAILY PO 10/01/16 09:00 Family History Positive for early onset cardiovascular disease. Father first heart attack at age 41. Mother in her early 40s from lymphoma. Social History No known hypertension, diabetes, or hyperlipidemia. Lifelong nonsmoker. Denies any alcohol or illegal drug use. . Past cardiac testing 2007cardiac catheterization unremarkable. Cardiac catheterization sensation completed prior to gastric bypass surgery for cardiac clearance. No cardiac testing since cardiac catheterization. Physical Exam Vital Signs Vital Signs Date Time Temp Pulse Resp B/P Pulse Ox O2 Delivery O2 Flow Rate FiO2 09/30/16 13:47 65 18 131/82 99 Room Air 09/30/16 10:19 65 18 138/79 99 Room Air 09/30/16 10:03 98.2 85 17 155/67 97 Physical Exam GENERAL: Alert WN, WD, NAD, anxious, female HEAD: NC, AT EYES: Sclera clear, conjunctiva without injection, pupils equal and round ENT: Mucous membranes pink and moist NECK: Supple, no masses, trachea midline CV: RRR, without murmur, rub, gallop, no JVD, S1-S2 no S3-S4. RESP: Clear lungs throughout bilateral, no crackles, wheeze, rhonchi, symmetrical chest rise, nonlabored, able to speak in full sentences ABD: Soft, generalized tenderness, ND, no masses, positive bowel tones BACK: No CVAT EXT: Pulses +24, no dependent edema MS: Normal tone 4 extremities, nontender, no obvious deformities, full range of motion NEURO: CN II through CN XII grossly intact, motor strength 5/5, gait WNL PSYCH: A+O 3, appropriate speech, anxious and tearful, appropriate insight and judgment SKIN: Normal turgor, normal texture, no lesions, no rashes, brisk cap refill, even hair distribution Laboratory Laboratory Tests Test 09/30/16 10:30 White Blood Count 4.5 Red Blood Count 4.53 Hemoglobin 12.1 Hematocrit 36.2 Mean Corpuscular Volume 80.0 Mean Corpuscular Hemoglobin 26.7 Mean Corpuscular Hemoglobin 33.4 Concent Red Cell Distribution Width 15.6 Platelet Count 223 Mean Platelet Volume 8.2 Neutrophils (%) (Auto) 63.8 Lymphocytes (%) (Auto) 26.0 Monocytes (%) (Auto) 9.2 Eosinophils (%) (Auto) 0.5 Basophils (%) (Auto) 0.5 Neutrophils # (Auto) 2.9 Lymphocytes # (Auto) 1.2 Monocytes # (Auto) 0.4 Eosinophils # (Auto) 0.0 Basophils # (Auto) 0.0 CBC Comment DIFF FINAL Differential Comment Prothrombin Time 11.4 Prothromb Time International 1.0 Ratio Activated Partial 25.1 Thromboplast Time Sodium Level 142 Potassium Level 3.6 Chloride Level 106 Carbon Dioxide Level 29.1 Anion Gap 7 Blood Urea Nitrogen 15 Creatinine 0.72 Estimat Glomerular Filtration 85 Rate Random Glucose 104 Calcium Level 8.9 Magnesium Level 2.2 Total Bilirubin 0.5 Aspartate Amino Transf 11 (AST/SGOT) Alanine Aminotransferase 14 (ALT/SGPT) Alkaline Phosphatase 90 Total Creatine Kinase 53 Troponin I LESS THAN 0.02 Total Protein 7.4 Albumin 3.7 Lipase 175 Result Diagram: 09/30/16 1030 09/30/16 1030 Imaging Last Impressions Chest X-Ray 09/30/16 1036 Signed Impressions: Service Date/Time: Friday, September 30, 2016 10:53 - CONCLUSION: No acute disease. Tyson Iqbal MD FACR Course EKG Normal sinus rhythm, normal axis, no ST or T-segment changes Assessment and Plan Assessment and Plan Chest painadmitted to chest pain center. Will complete 3 sets of EKGs, cardiac enzymes, monitor overnight. Was seen and evaluated by Dr. Kavon Peraza. Complete a chemical stress test in a.m. to rule out cardiac. Abdominal painconsult Pamela Saravia [facility] Sep 30, 2016 13:48
[2016-09-30] MEDS ORDERED: ALPRAZolam 1 MG TAB PO PRN (14:00)
[2016-09-30 15:04] VITALS: BP 132/64
[2016-09-30 15:09] LABS: CREATINE KINASE 49 U/L (26-192)
[2016-09-30 17:54] LABS: CREATINE KINASE 45 U/L (26-192)
--- NOTE | 2016-09-30 19:07 | EKG ---
Date Performed: 09/30/2016 Time Performed: 10:19:35 PTAGE: 55 years EKG: Sinus rhythm BORDERLINE RIGHT AXIS DEVIATION POSSIBLE RIGHT VENTRICULAR CONDUCTION DELAY BORDERLINE ECG NO PREVIOUS TRACING DOCTOR: Anuja Underwood Interpretating Date/Time 09/30/2016 19:06:51
[2016-09-30 19:47] VITALS: BP 104/69; PULSE 70; RESP 18; TEMP 97.4; O2SAT 97
[2016-09-30] MEDS: SODIUM CHLORIDE 0.9% FLUSH 10 ML FLUSH IV FLUSH SCH (21:00)
[2016-09-30 23:30] VITALS: BP 128/86; PULSE 67; RESP 18; TEMP 97.9; O2SAT 95
[2016-10-01] VITALS (7 sets, daily range): BP systolic 110–151; BP diastolic 61–81; PULSE 67–91; RESP 18–20; TEMP 97.6–98.4; O2SAT 96–99
[2016-10-01] MEDS: ASPIRIN 325 MG TAB PO SCH (08:50)
[2016-10-01] MEDS: SODIUM CHLORIDE 0.9% FLUSH 10 ML FLUSH IV FLUSH SCH ×2 (08:50→21:34)
[2016-10-01] MEDS ORDERED: REGADENOSON INJ 0.4 MG/5 ML SYR ONE (09:58)
[2016-10-01] MEDS ORDERED: AMINOPHYLLINE INJ 250 MG/10 ML VIAL ONE (10:19)
--- NOTE | 2016-10-01 10:58 | PD.CONS ---
HPI History of Present Illness This is a 55 year old who has had chronic intermittent abdominal pain with associated nausea/vomiting for about 6-8 years. She reports that she has a hx of gastroparesis and pain related to adhesions from multiple abdominal surgeries. She has been evaluated with EGD in 2014, Colonoscopy 2012, Sitz Markers, Gastric Emptying Scan, KUBs, CT scans. SHe is s/p cholecystectomy. She has been tried on PPI's, Librax, Bentyl, Xifaxan, Creon, PPIs, but states nothing really helps. This latest episode began on September 08. She complains of constant mid abdominal pain that she describes as burning. It radiates to her epigastric and chest. She has associated nausea and vomiting with undigested food. She denies any heartburn or reflux. She denies any relation to food intake and states that her pain is more aggravated by movement. However , she states she has not really been eating much and reports that she has lost 12 lbs over the past month. She also has associated constipation and a hx of impactions. She takes miralax in hot water or chamoile tea and recentl started taking pericolace. She typically moves her bowels 1-2 times a week. There is no blood or mucous. She reports that she was seen by Dr. Bojorquez in the past, but was recently discharged from their practice and that she has not been able to get established with anyone else. (Kami Churchill) PFSH Past Medical History Anxiety Gastroparesis Chronic abdominal pain with associated nausea/vomiting Constipation Hx impactions Hx adhesions Past Surgical History EGD Colonoscopy Lysis of Adhesions x 3 Partial hysterectomy Tubal ligation Gastric bypass Cholecystectomy Hernia repair Cardiac catheterization (Kami Churchill) Coded Allergies: No Known Allergies (Verified , 09/22/16) Medications Allergies Coded Allergies Type Severity Reaction Last Updated Verified No Known Allergies 09/22/16 Yes Active Scripts Medications Dose Route/Sig Days Date Category Dose Instructions Chayito-Colace (Sennosides-Docusate Sodium) 8.6-50 Mg Tab 2 Tab PO DAILY 09/22/16 Rx May increased dose to BID, as needed to acheive regular BM's Percocet (Oxycodone-Acetaminophen) 5-325 mg Tab 1 Tab PO Q6H PRN 09/22/16 Rx Ranitidine (Ranitidine HCl) 150 Mg Tab 150 Mg PO BID 09/16/16 Rx Xanax (Alprazolam) 1 Mg Tab 1 Mg PO Q6H PRN 09/11/16 Reported Estradiol 1 Mg Tab 1 Mg PO DAILY 05/20/16 Rx Family History Father had IL at age 41. Mother in her early 40s from lymphoma. Social History Denies the use of tobacco, etoh (Kami Churchill MOON) Review of Systems Constitutional: COMPLAINS OF: Weight loss, DENIES: Fever, Chills Respiratory: DENIES: Cough, Shortness of breath Cardiovascular: COMPLAINS OF: Chest pain Gastrointestinal: COMPLAINS OF: Abdominal pain, Constipation, Nausea, Vomiting , Swelling of Abdomen, DENIES: Black stools, Bloody stools, Diarrhea, Heartburn Musculoskeletal: DENIES: Joint pain Integumentary: DENIES: Abnormal pigmentation, Rash Hematologic/lymphatic: DENIES: Bruising Neurologic: DENIES: Headache Psychiatric: DENIES: Confusion (Kami Churchill MOON) GI Exam Vitals I&O Vital Signs Date Time Temp Pulse Resp B/P Pulse Ox O2 Delivery O2 Flow Rate FiO2 10/01/16 09:30 98.4 78 18 125/73 96 10/01/16 03:27 98.4 67 18 121/81 96 09/30/16 23:30 97.9 67 18 128/86 95 09/30/16 19:47 97.4 70 18 104/69 97 09/30/16 15:04 68 19 132/64 99 09/30/16 13:47 65 18 131/82 99 Room Air Imaging Last Impressions Chest X-Ray 09/30/16 1036 Signed Impressions: Service Date/Time: Friday, September 30, 2016 10:53 - CONCLUSION: No acute disease. Tyson Iqbal MD FACR Laboratory Test 09/30/16 09/30/16 13:30 16:40 Total Creatine Kinase 49 U/L 45 U/L Troponin I LESS THAN 0.02 LESS THAN 0.02 NG/ML NG/ML Physical Examination HEENT: Normocephalic; atraumatic; no jaundice. CHEST: CTA. CARDIAC: RRR. ABDOMEN: Soft, nondistended, mild to moderate mid abdominal tenderness; no hepatosplenomegaly; bowel sounds are present in all four quadrants. EXTREMITIES: No clubbing, cyanosis, or edema. SKIN: Normal; no rash; no jaundice. MECHANICAL SERVICE SPECIALIST: No focal deficits; alert and oriented times three. (Kami Churchill) Assessment and Plan Plan ASSESSMENT: - Acute on chronic abdominal pain with nausea/vomiting, bloating. Hx of this x 6 -8 years, previously evaluated with EGD in 2014, Colonoscopy 2012, Sitz Markers, Gastric Emptying Scan, KUBs, CT scans. SHe is s/p cholecystectomy. She has been tried on PPI's, Librax, Bentyl, Xifaxan, Creon, PPIs, but states nothing really helps. She was seen by Dr. Bojorquez in the past but states she was discharged from their practice. This latest episode began on September 08- constant mid abdominal pain, radiating to epigastric area and chest with n/v with undigested food, 12 lbs wt. loss. She reports that she has gastroparesis, not currently on meds. States she has adhesions from multiple abdominal surgeries and has had SAHIL x3. No imaging of the abdomen. LFT normal. Lipase normal. Will get CT scan abdomen and pelvis, with EGD/Colonoscopy in am. - Constipation with hx of impactions. She takes miralax in hot water or chamoile tea and recentl started taking pericolace. She typically moves her bowels 1-2 times a week and last did 1.5 days ago. There is no blood or mucous. - Gastroparesis, not currently on meds other than a laxative. - Chest pain, atypical. Getting nuclear stress test. - Anxiety per primary. PLAN: - Plan for egd/colonoscopy in am - Obtain consents - Clear liquids - NPO after MN - Golytely prep - PPI - CT Scan abdomen and pelvis - Monitor labs - Supportive care - Further recommendations to follow based on results of above - PT seen and examined by Dr. Hua and myself and this note is written on his behalf (Kami Churchill) Physician Comments Seen and examined Agree with above Continue with current supportive care Monitor labs CT results noted no acute changes We will proceed with an EGD and a colonoscopy tomorrow (Kane Hua MD) Kami Churchill Oct 01, 2016 10:58 Kane Hua MD Oct 01, 2016 21:31
--- NOTE | 2016-10-01 11:34 | RADRPT ---
EXAM DATE/TIME: 10/01/2016 09:11 [facility] COMPARISON: No previous studies available for comparison. INDICATIONS : Substernal chest pain radiating down left arm with nausea for 1 day. Angina. DOSE: 27.0 mCi Tc99m Myoview at stress. 8.8 mCi Tc99m Myoview at rest. 0.4 mg Lexiscan STRESS SYMPTOMS: Nausea and stomach pain. MEDICATIONS: 1.) 100 mg Aminophylline IV EJECTION FRACTION: 70% MEDICAL HISTORY : Hypertension. SURGICAL HISTORY : Hysterectomy. Appendectomy. Cholecystectomy. Gastric Bypass. Cardiac catherization. ENCOUNTER: Initial ACUITY: 1 day PAIN SCALE: 8/10 LOCATION: Substernal chest TECHNIQUE: The patient underwent pharmacologic stress with infusion of prescribed dose. Continuous ECG tracing was monitored during stress. Gated SPECT imaging was performed after stress and conventional SPECT i maging was performed at rest. The examination was performed on a SPECT/CT scanner, both attenuation and non-corrected datasets were reviewed. FINDINGS: DISTRIBUTION: The maximum perfused segment at stress is in the anterolateral wall. PERFUSION STUDY: The pattern of perfusion at stress shows there is a partially 10% redistribution in portions of the l ateral and septal mart inferiorly which would not be considered statistically significant. Mild apic al thinning. GATED STUDY: There is intact wall motion and thickening without hypokinetic or dyskinetic segments. CONCLUSION: 1. Mild apical thinning with no reversibility to suggest ischemia. 2. Excellent wall motion throughout with an estimated ejection fraction of 70%. RISK CATEGORY: Low (<1% Annual Mortality Rate) Duncan Weeks MD on October 01, 2016 at 11:29 Board Certified Radiologist. This report was verified electronically.
[2016-10-01] MEDS ORDERED: DIATRIZOATE MEGLUM/DIATRIZOATE SOD 9 ML CUP PO ONE (11:45)
--- NOTE | 2016-10-01 12:31 | PD.CARD.PN ---
Subjective Subjective Remarks No chest pain overnight. 1 emesis after eating dinner. Slept well. Objective Vital Signs / I&O Vital Signs Date Time Temp Pulse Resp B/P Pulse Ox O2 Delivery O2 Flow Rate FiO2 10/01/16 10:59 98.0 70 20 151/79 99 10/01/16 10:55 69 10/01/16 09:30 98.4 78 18 125/73 96 10/01/16 03:27 98.4 67 18 121/81 96 09/30/16 23:30 97.9 67 18 128/86 95 09/30/16 19:47 97.4 70 18 104/69 97 09/30/16 15:04 68 19 132/64 99 09/30/16 13:47 65 18 131/82 99 Room Air Physical Exam GENERAL: Alert WN, WD, NAD CV: RRR, without murmur, rub, or gallop RESP: Clear lungs throughout bilateral, no crackles, wheeze, rhonchi ABD: Soft, generalized tenderness MS: Normal tone 4 extremities, nontender, no obvious deformities, full range of motion NEURO: Gait WNL, motor strength 5/5 PSYCH: A+O 3, pleasant affect, appropriate speech, appropriate mood and affect , insight and judgment Laboratory Laboratory Tests Test 09/30/16 09/30/16 13:30 16:40 Total Creatine Kinase 49 U/L 45 U/L Troponin I LESS THAN 0.02 LESS THAN 0.02 NG/ML NG/ML Imaging Last Impressions Myocardial Perfusion Scan Nuc Med 10/01/16 0000 Signed Impressions: Service Date/Time: September 09:11 - CONCLUSION: 1. Mild apical thinning with no reversibility to suggest ischemia. 2. Excellent wall motion throughout with an estimated ejection fraction of 70%%. RISK CATEGORY: Low (<1%% Annual Mortality Rate) Duncan Weeks MD Chest X-Ray 09/30/16 1036 Signed Impressions: Service Date/Time: Friday, September 30, 2016 10:53 - CONCLUSION: No acute disease. Tyson Iqbal MD FACR Assessment and Plan Assessment and Plan Chest painadmitted to chest pain center. Chemical stress test completed unremarkable. Will consult hospitalist for medical management. Will speak to hospitalist once assigned. Abdominal painseen and evaluated by GI. Plans for endoscopy in Pamela Sebastian Oct 01, 2016 12:31
--- NOTE | 2016-10-01 14:02 | TR ---
Date Performed: 10/01/2016 Time Performed: 09:54:38 DOCTOR: Anuja Underwood DRUG LIST: CLINICAL HISTORY: REASON FOR TEST: Angina REASON FOR ENDING: OBSERVATION: CONCLUSION: Lexiscan stress test was performed under standard four minute protocol. Radionuclid e was injected one minute prior to ending the test. No electrocardiographic abormalities were present to suggest ischemia. Nuclear imaging and interpretation are pending. COMMENTS:
--- NOTE | 2016-10-01 14:07 | EKG ---
Date Performed: 09/30/2016 Time Performed: 17:01:14 PTAGE: 55 years EKG: Sinus rhythm BORDERLINE RIGHT AXIS DEVIATION LOW QRS VOLTAGE IN PRECORDIAL LEADS BORDERLINE ECG Since previous tr acing, no significant change noted NO PREVIOUS TRACING DOCTOR: Anuja Underwood Interpretating Date/Time 10/01/2016 14:03:42
--- NOTE | 2016-10-01 14:08 | EKG ---
Date Performed: 09/30/2016 Time Performed: 13:50:40 PTAGE: 55 years EKG: SINUS BRADYCARDIA BORDERLINE RIGHT AXIS DEVIATION LOW QRS VOLTAGE IN PRECORDIAL LEADS INCOM PLETE RIGHT BUNDLE BRANCH BLOCK BORDERLINE ECG Since PREVIOUS TRACING , no significant change noted PREVIOUS TRACIN09/30/2016 10.19 DOCTOR: Anuja Underwood Interpretating Date/Time 10/01/2016 14:04:55
--- NOTE | 2016-10-01 15:06 | PD.CONS ---
HPI Service Family Medicine Consult Requested By Reason for Consult Overnight admission for GI evaluation of epigastric pain Primary Care Physician Marge Mejia MD History of Present Illness Per EMR Review: Ms. Liang is a 55 yo F with PMH gastroparesis, abdominal pain s/p multiple intraperitoneal surgeries and subsequent lysis of adhesions patient of Dr. Mejia who presented to [place] ED 09/30 due to symptoms of abdominal pain and substernal chest pain radiating down left arm, anxiety, and nausea. Patient was assessed for acute coronary syndrome with EKG and troponin measurement; these were reassuring (EKG with only borderline R axis deviation) so patient was admitted to chest pain center for further evaluation of new onset chest pain. Nuclear stress test performed and was deemed low risk due to normal EF without suggestion of reversible perfusion deficits; repeat EKG/troponins also reassuring. Regarding patient's abdominal pain, patient is had a history of persistent nausea/vomiting/pain in association of weight loss for the past month; she has history of chronic gastroparesis, abdominal pain, and prior fecal impaction. Patient recently referred to software support specialist by Dr. Medellin at recent clinic visit 09/22. Patient reportedly has not had recent GI evaluation with endoscopy since 2014 and symptoms of an refractory to multiple treatment modalities including PPI and Creon; per GI patient will be assessed with CT abdomen/pelvis and endoscopy/colonoscopy 10/02. Family medicine consulted for hospitalist management while inpatient. Patient reports that she feels like there is "something wrong" with her stomach since September 2016; since 09/06 patient has had burning sensation when drinking and has been unable to eat due to persistent vomiting. Patient feels "burn"ing sensation behind her sternum and extending to the center of her stomach immediately after drinking hot water. Patient does get this sensation with food but vomits within 10-15 min of eating. Patient reports that she generally has a restricted diet due to history of gastroparesis but that since 09/06, she that the "burning" pain she experiences is a new type of pain for her. Patient has had small quantities of stool when straining since September ~weekly; previously bowel movements were "greasy" and floating but still ~weekly. Patient states that her pain is also severe at night and central; this is different than burning sensation and not associated with oral intake. patient states that she hears "loud" digestive "noises."Since pain started in September, Zofran and Reglan did not work for vomiting. Ranitidine did not work for pain but "calmed" stomach for "about an hour." Patient also reports Creon ineffective. Patient reports that she still feels chest pain at this time which is L sided but is more located around her L shoulder and not radiating down L arm. Patient reports chills, hot flashes but states that she takes Estradiol for menopausal symptoms for a couple years. Patient reports mild SOB which is new. Patient states that her urine is malodorous. Patient reports depression and crying due to pain. Patient also takes Xanax for anxiety. Patient states that despite pain she doesn 't take prescribed Percocet for fear of impaction. Patient takes Pericolace due to constipation. Patient reports depression and that she is interested in medical management. Patient denies suicidal ideation but states that she does not want to live with pain. Patient states that her adhesions were last lysed in 01/2016; adhesions were different and were a "tugging" discomfort rather than pain. Prior EGD/ Colonoscopy several years ago reportedly looked ok. Patient also reports barium studies were reassuring in 2014. (Cecilio Aguilera MD R2) Past Family Social History Past Medical History Per EMR Anxiety Gastroparesis- bypass History of bypass Chronic abdominal pain with associated nausea/vomiting Constipation Hx impactions Hx adhesions Depression Past Surgical History Per EMR/patient EGD 2014 Colonoscopy 2013 Lysis of Adhesions x 3 Barium studies? Partial hysterectomy Tubal ligation Gastric bypass Cholecystectomy Hernia repair Cardiac catheterization- no stents placed tonsillectomy Reported Medications Prior depression med- patient thinks Citalopram but made her sick Reported Meds & Active Scripts Active Chayito-Colace (Sennosides-Docusate Sodium) 8.6-50 Mg Tab 2 Tab PO DAILY May increased dose to BID, as needed to acheive regular BM's Percocet (Oxycodone-Acetaminophen) 5-325 mg Tab 1 Tab PO Q6H PRN Ranitidine (Ranitidine HCl) 150 Mg Tab 150 Mg PO BID Estradiol 1 Mg Tab 1 Mg PO DAILY Reported Xanax (Alprazolam) 1 Mg Tab 1 Mg PO Q6H PRN (Cecilio Aguilera MD R2) Allergies: Coded Allergies: No Known Allergies (Verified , 09/22/16) Family History COPD CAD DM Dementia Lymphoma- mother Aunt- cervical cancer Per EMR Father had MS at age 41. Mother in her early 40s from lymphoma Social History No smoking or alcohol Tried marijuana for vomiting; didn't help (Cecilio Aguilera MD R2) Physical Exam Vital Signs Vital Signs Date Time Temp Pulse Resp B/P Pulse Ox O2 Delivery O2 Flow Rate FiO2 10/01/16 10:59 98.0 70 20 151/79 99 10/01/16 10:55 69 10/01/16 09:30 98.4 78 18 125/73 96 10/01/16 03:27 98.4 67 18 121/81 96 09/30/16 23:30 97.9 67 18 128/86 95 09/30/16 19:47 97.4 70 18 104/69 97 09/30/16 15:04 68 19 132/64 99 Physical Exam General: No acute distress Skin: Midline vertical abdominal incision present over epigastric area. ENT: No oropharyngeal pathology identified Neck: No lymphadenopathy or thyromegaly identified Chest: No pain to palpation of chest wall CV: Normal perfusion grossly. Normal rate and rhythm. Respiratory: Normal rate; CTAB GI: Patient reports pain to palpation of epigastric region and central abdomen. No grimacing; minimal to no guarding. Abdomen soft. Normal BS. No hepatomegaly appreciated EXT: Grossly normal motor function and ROM Neuro: Grossly normal CN, grossly normal motor and sensory function Laboratory Laboratory Tests Test 09/30/16 16:40 Total Creatine Kinase 45 Troponin I LESS THAN 0.02 (Cecilio Aguilera MD R2) Result Diagram: 09/30/16 1030 09/30/16 1030 Imaging Last Impressions Myocardial Perfusion Scan Nuc Med 10/01/16 0000 Signed Impressions: Service Date/Time: September 09:11 - CONCLUSION: 1. Mild apical thinning with no reversibility to suggest ischemia. 2. Excellent wall motion throughout with an estimated ejection fraction of 70%%. RISK CATEGORY: Low (<1%% Annual Mortality Rate) Duncan Weeks MD Chest X-Ray 09/30/16 1036 Signed Impressions: Service Date/Time: Friday, September 30, 2016 10:53 - CONCLUSION: No acute disease. Tyson Iqbal MD FACR (Cecilio Aguilera MD R2) Assessment and Plan Assessment and Plan Ms. Liang is a 55 yo F with: Code Status Full code (Cecilio Aguilera MD R2) Attending Attestation THIS CASE WAS DISCUSSED WITH THE RESIDENT PHYSICIAN. I HAVE REVIEWED THE RECORD AND AGREE WITH THE ABOVE NOTE AND PLAN OF CARE WAS DISCUSSED. I HAVE AUTHORIZED THE ORDER FOR PLACEMENT IN OUT-PATIENT OBSERVATION STATUS. (Forrest Alvarez MD) Problem List: (1) Chronic abdominal pain Status: Chronic Plan: -Management per GI -A/P CT ordered -Start IV PPI -Clear liquid diet -NPO after midnight for EGD/Colonoscopy -Will give IV Tylenol for pain Impression: Recent 1 mo abdominal "burning" pain and vomiting in association with oral intake and nighttime severe cramping pain. PSH of gastric bypass, hernia repair (unspecified), adhesion lysis x3, cholecystectomy, partial hysterectomy, tubal ligation w/ PMH gastroparesis. Reportedly benign EGD in 2014 and colonoscopy in 2012. Reportedly normal barium studies per patient CMP wnl Lipase wnl CBC wnl 09/16 A/P CT with adnexal cyst, biliary dilatation (2) Chest pain Status: Acute Plan: -Monitor at this time; no intervention required Impression: Current L sided chest/shoulder pain is lessened; no longer radiating to L arm. Cardiac etiologies ruled out. Suspect MSK related. Nuclear stress test 10/01- normal EF, low risk without suggestion of reversible defects. EKG x2- borderline R axis deviation; no concerning ST changes Troponins- x3 wnl (3) Depression Status: Chronic Plan: -Discussed initiation of another antidepressant with patient; patient agreeable to starting -Will plan to initiate antidepressant prior to discharge Impression: Patient reports depression secondary to chronic pain. Patient reports prior intolerance to Cymbalta prescribed by Dr. Mejia (patient also prescribed Zoloft by Dr. Mejia, unclear if patient tried). No suicidal ideation. (4) Anxiety Status: Chronic Plan: -Continue home Xanax Impression: Chronic anxiety controlled with Xanax (5) DVT Prophylaxis Status: Acute Plan: -Bilateral SCD's prior endoscopy/colonoscopy (6) Fluids, Electrolytes, and Nutrition Status: Acute Plan: Fluids: Will give maintenance IVF due to decreased oral intake Diet: Clear liquid diet; NPO after midnight Electrolytes: CMP wnl; will monitor (Cecilio Aguilera MD R2) Problem Qualifiers (1) Depression: Cecilio Aguilera MD R2 Oct 01, 2016 15:05 Forrest Alvarez MD Oct 02, 2016 12:02
[2016-10-01] MEDS ORDERED: IOHEXOL 350 MG/ML 10 ML VIAL (for RAD DIAG) IV ONE (15:07)
[2016-10-01] MEDS ORDERED: PEG (High)/E-LYTE SOLN 4000 ML BTL PO ONE (16:00)
--- NOTE | 2016-10-01 16:47 | RADRPT ---
EXAM DATE/TIME: 10/01/2016 15:05 [facility] COMPARISON: CT ABDOMEN & PELVIS W CONTRAST, September 11, 2016, 14:21. INDICATIONS : Abdominal pain for three weeks IV CONTRAST: 100 cc Omnipaque 350 (iohexol) IV ORAL CONTRAST: Prescribed oral contrast ingested. RADIATION DOSE: 9.96 CTDIvol (mGy) MEDICAL HISTORY : Hypertension. SURGICAL HISTORY : Appendectomy. Gastric bypass. Tubal ligation.Cholecystectomy. Hysterectomy. Hernia mesh repair. ENCOUNTER: Subsequent ACUITY: 3 weeks PAIN SCALE: 4/10 LOCATION: Umbilical radiating to the left TECHNIQUE: Volumetric scanning of the abdomen and pelvis was performed. Using automated exposure control and ad justment of the mA and/or kV according to patient size, radiation dose was kept as low as reasonably achievable to obtain optimal diagnostic quality images. FINDINGS: LOWER LUNGS: The visualized lower lungs are clear. LIVER: Homogeneous density without lesion. The patient is again noted to be status post cholecystectomy. The central intrahepatic biliary system remains prominent but unchanged. Common bile duct stable as well and measures up to approximately 11 mm. There are no definite filling defects. SPLEEN: Normal size without lesion. PANCREAS: Within normal limits. KIDNEYS: Normal in size and shape. There is no mass, stone or hydronephrosis. ADRENAL GLANDS: Within normal limits. VASCULAR: There is no aortic aneurysm. BOWEL/MESENTERY: Postsurgical changes are noticed in the stomach multiple clips and yuli. There are multiple loops of nondilated small bowel multiple small air-fluid levels. Gas and stool is noted segments in the col on as well as oral contrast with air-fluid levels as well. There is a simple appearing cyst in the an terior left pelvis measuring up to 2.4 cm in diameter. This appears to represent the previously noted cyst which is changed in position. ABDOMINAL WALL: Within normal limits. RETROPERITONEUM: There is no lymphadenopathy. BLADDER: No wall thickening or mass. REPRODUCTIVE: Within normal limits. INGUINAL: There is no lymphadenopathy or hernia. MUSCULOSKELETAL: Within normal limits for patient age. CONCLUSION: 1. Nonspecific, nonobstructive bowel gas pattern which may represent ileus or gastroenteritis. 2. Status post cholecystectomy with stable prominence of the biliary system. 3. Stable left ovarian cyst which is changed in position. 4. Postsurgical changes status post gastric surgery. Monster Drummond MD on October 01, 2016 at 16:41 Board Certified Radiologist. This report was verified electronically.
[2016-10-01] MEDS: PANTOPRAZOLE SODIUM 40 MG VIAL IV PUSH SCH (18:11)
[2016-10-01] MEDS: ACETAMINOPHEN 1000 MG/100 ML VIAL IV PRN (18:12)
[2016-10-01] MEDS: SODIUM CHLOR 0.9% 1000 ML INJ 1,000 ML IV SCH (21:33)
[2016-10-01] MEDS: ONDANSETRON HCL 4 MG/2 ML VIAL IV PRN (21:33)
[2016-10-02 03:46] VITALS: PULSE 70
[2016-10-02 04:14] VITALS: BP 110/60; PULSE 70; RESP 18; TEMP 97.9; O2SAT 97
[2016-10-02 08:29] VITALS: BP 127/70; PULSE 82; RESP 18; TEMP 97.8; O2SAT 98
[2016-10-02 09:33] LABS: BASOPHIL % 0.5 % (0.0-2.0); EOSINOPHIL % 0.9 % (0.0-4.0); HEMATOCRIT 35.6 % (35.0-46.0); HEMO FLAGS DIFF FINAL; LYMPH % 22.9 % (9.0-44.0); MEAN CELL VOLUME 80.9 FL (80.0-100.0); MEAN CORPUSCULAR HEMOGLOBIN 25.3 PG (27.0-34.0); MEAN CORPUSCULAR HGB CONC 31.3 % (32.0-36.0); MONO % 7.1 % (0.0-8.0); NEUT % 68.6 % (16.0-70.0); PLATELET COUNT 188 TH/MM3 (150-450); RED CELL DISTRIBUTION WIDTH 15.5 % (11.6-17.2); WHITE BLOOD COUNT 4.4 TH/MM3 (4.0-11.0)
[2016-10-02] MEDS: SODIUM CHLOR 0.9% 1000 ML INJ 1,000 ML IV SCH ×3 (10:12→22:05)
[2016-10-02] MEDS: DOCUSATE SODIUM 50 MG/SENNA 8.6 MG TAB PO SCH (10:13)
[2016-10-02] MEDS: ASPIRIN 325 MG TAB PO SCH (10:13)
[2016-10-02] MEDS: SODIUM CHLORIDE 0.9% FLUSH 10 ML FLUSH IV FLUSH SCH ×2 (10:13→21:00)
[2016-10-02 10:18] LABS: BICARBONATE 26.4 MEQ/L (21.0-32.0); POTASSIUM 3.8 MEQ/L (3.5-5.1)
[2016-10-02] MEDS ORDERED: MORPHINE SULFATE 4 MG/ML INJ IV PUSH PRN (12:00)
--- NOTE | 2016-10-02 12:01 | HHI.FPPN ---
Subjective Remarks Patient continues to complain of epigastric abdominal pain this morning that she describes as sharp and consistent in nature. She states that around 1 AM she noticed a squeezing/twisting sensation in her epigastric/lower abdominal region that was very painful. Otherwise, her chest pain has improved and she denies any chest pain at this time. She started drinking her GoLYTELY yesterday evening, however fell asleep after receiving some Zofran and was only able to drink approximately half of this. She is continuing to have bowel movements and are described as watery/brown in nature without any evidence of blood. In summary this is a 55-year-old female who presented with both chest and abdominal pain to the emergency department 2 days ago. Her chest pain was evaluated with serial troponins and EKGs that were within normal limits, she also had a nuclear stress test that was within normal limits and did not show any evidence of ischemia. GI was then consulted to evaluate her abdominal pain and she is scheduled to have an EGD/colonoscopy today if possible. As far as her abdominal pain, she has had a significant history of intraperitoneal surgeries with subsequent lysis of adhesions 3 with the last one being approximately 1 year ago. Over the last 4 weeks, she has noticed a relatively consistent pain in her epigastric/mid abdomen region is both sharp and twisting/ squeezing in nature. She states that this is different than her previous abdominal pain due to adhesions would like this checked out. Objective Vitals Vital Signs Date Time Temp Pulse Resp B/P Pulse Ox O2 Delivery O2 Flow Rate FiO2 10/02/16 08:29 97.8 82 18 127/70 98 10/02/16 04:14 97.9 70 18 110/60 97 10/02/16 03:46 70 10/01/16 23:56 98.0 91 19 110/64 98 10/01/16 21:34 20 10/01/16 20:10 97.9 79 18 110/61 99 10/01/16 14:56 97.6 81 18 129/72 97 Result Diagram: 10/02/16 0854 10/02/16 0854 Imaging Last 72 hours Impressions Myocardial Perfusion Scan Nuc Med 10/01/16 0000 Signed Impressions: Service Date/Time: September 09:11 - CONCLUSION: 1. Mild apical thinning with no reversibility to suggest ischemia. 2. Excellent wall motion throughout with an estimated ejection fraction of 70%%. RISK CATEGORY: Low (<1%% Annual Mortality Rate) Duncan Weeks MD Abdomen/Pelvis CT 10/01/16 0000 Signed Impressions: Service Date/Time: September 15:05 - CONCLUSION: 1. Nonspecific, nonobstructive bowel gas pattern which may represent ileus or gastroenteritis. 2. Status post cholecystectomy with stable prominence of the biliary system. 3. Stable left ovarian cyst which is changed in position. 4. Postsurgical changes status post gastric surgery. Monster Drummond MD Chest X-Ray 09/30/16 1036 Signed Impressions: Service Date/Time: Friday, September 30, 2016 10:53 - CONCLUSION: No acute disease. Tyson Iqbal MD FACR Objective Remarks General: Lying in bed in no obvious distress, moves around comfortably Skin: Midline vertical abdominal incision present over epigastric area. Chest: No pain to palpation of chest wall CV: Normal perfusion grossly. Normal rate and rhythm. Respiratory: Normal rate; CTAB GI: Tender to palpation in epigastric/mid abdominal region without rebound. Nontender in left or right lower quadrant. No palpable hepatosplenomegaly EXT: Grossly normal motor function and ROM Neuro: Grossly normal CN, grossly normal motor and sensory function A/P Assessment and Plan Ms. Liang is a 55 yo F with: Problem List: (1) Chronic abdominal pain Status: Chronic Plan: Appreciate GI consult and recommendations - IV PPI with Protonix 40 mg daily - Currently nothing by mouth except for her GoLYTELY with plan for EGD/ colonoscopy today (10/02) CT abdomen/pelvis: Nonspecific, nonobstructive bowel gas pattern which may represent ileus or gastroenteritis. Status post cholecystectomy with stable prominence of the biliary system. Stable left ovarian cyst which is unchanged in position. Postsurgical changes status post gastric surgery. Lab work has been unremarkable: CMP within normal limits Lipase within normal limits at 175 CBC wnl Pain control: - Acetaminophen 1000 mg IV every 8 hours as needed - Morphine 2 mg IV every 4 hours as needed (2) Chest pain Status: Acute Plan: Cardiac troponins negative 3 with stable EKG - Nuclear stress test 10/01- normal EF, low risk without suggestion of reversible defects. - EKG x2- borderline R axis deviation; no concerning ST changes - Troponins- x3 wnl (3) Depression Status: Chronic Plan: -Discussed initiation of another antidepressant with patient; patient agreeable to starting -Will plan to initiate antidepressant prior to discharge (4) Anxiety Status: Chronic Plan: -Continue home Xanax (5) DVT Prophylaxis Status: Acute Plan: -Bilateral SCD's prior endoscopy/colonoscopy (6) Fluids, Electrolytes, and Nutrition Status: Acute Plan: Fluids: Will give maintenance IVF due to decreased oral intake Diet: Clear liquid diet; NPO after midnight Electrolytes: CMP wnl; will monitor Problem Qualifiers (1) Depression: Forrest Alvarez MD Oct 02, 2016 12:01
[2016-10-02] MEDS ORDERED: ONDANSETRON HCL 4 MG/2 ML VIAL IV PUSH ONE (12:59)
[2016-10-02] MEDS ORDERED: PROPOFOL 200 MG/20 ML AMP IV ONE (12:59)
--- NOTE | 2016-10-02 13:31 | PD.PROCEDR ---
GI Procedure REFERRING PHYSICIAN Dr. Gonzales PROCEDURE PERFORMED EGD with biopsy followed by colonoscopy INDICATION FOR PROCEDURE Abdominal pain nausea vomiting bloating PROCEDURE: The procedure, risks and benefits were discussed with Ms. Liang and informed consent was obtained. Anesthesia sedated her with Diprivan. She was placed in the left lateral decubitus position. EGD: The Pentax videoscope was introduced through the oropharynx and advanced to the second portion of the duodenum under direct visualization. Retroflexion was performed in the stomach. FINDINGS: The esophagus this was normal The stomach there were surgical changes consistent with gastric bypass the gastric pouch appeared to be unremarkable and within normal limits the anastomosis appeared to be inflamed erythemic with an ulcer no visible vessel and strictured I was unable to pass the scope into the small bowel biopsies were taken no dilation was done at this point due to the presence of the ulcer The small bowel I was unable to enter and evaluate Colonoscopy: The Pentax videoscope was introduced through the rectum and advanced to cecum where the ileocecal valve and appendiceal orifice were identified. Retroflexion was performed in the rectum. Colonic prep was excellent FINDINGS: Colonic withdrawal time greater than 6 minutes as the scope was slowly withdrawn colonic mucosa was carefully inspected this was noted to be unremarkable and within normal limits the whole way through retroflexion in rectal examination were also unremarkable ESTIMATED BLOOD LOSS: None SPECIMENS REMOVED: Gastric biopsy COMPLICATIONS: None IMPRESSION: Surgical changes in the stomach consistent with gastric bypass Anastomotic ulcer Anastomotic stricture Normal colonoscopy PLAN: Await biopsies Avoid NSAIDs and aspirin Continue PPI Add Carafate EGD with dilation in 2 months Pured diet Stool softeners and laxatives as needed for her constipation Kane Hua MD Oct 02, 2016 13:31
[2016-10-02] MEDS ORDERED: DO NOT ADM ANY ANTICOAGULANT DRUGS PRN (14:45)
[2016-10-02 15:36] VITALS: BP 142/82; PULSE 88; RESP 20; TEMP 97.8; O2SAT 95
[2016-10-02] MEDS: PANTOPRAZOLE SODIUM 40 MG VIAL IV PUSH SCH (18:10)
[2016-10-02] MEDS: ONDANSETRON HCL 4 MG/2 ML VIAL IV PRN (18:11)
[2016-10-02] MEDS: SUCRALFATE 1 GM TAB PO SCH ×2 (18:11→22:04)
[2016-10-02 20:00] VITALS: PULSE 80
[2016-10-02 20:45] VITALS: BP 135/76; PULSE 67; RESP 19; TEMP 98.1; O2SAT 95
[2016-10-02] MEDS: ACETAMINOPHEN 1000 MG/100 ML VIAL IV PRN (22:05)
[2016-10-03] VITALS: BP 104/52; PULSE 65; RESP 20; TEMP 97.6; O2SAT 98
[2016-10-03 04:00] VITALS: BP 130/60; PULSE 69; RESP 20; TEMP 97.8; O2SAT 96
[2016-10-03] MEDS: SUCRALFATE 1 GM TAB PO SCH (06:22)
--- NOTE | 2016-10-03 06:23 | HHI.FPPN ---
Subjective Remarks Patient seen and examined this morning. Her vitals are stable and she is afebrile. She continues to have abdominal pain and to experience nausea. She states she cannot tolerate solids and when she chews her food very finely it seems to get stuck and cause her pain. States she cannot tolerate cold beverages, and now warm beverages are also causing her discomfort. Objective Vitals Vital Signs Date Time Temp Pulse Resp B/P Pulse Ox O2 Delivery O2 Flow Rate FiO2 10/03/16 04:00 97.8 69 20 130/60 96 10/03/16 00:00 97.6 65 20 104/52 98 10/02/16 20:45 98.1 67 19 135/76 95 10/02/16 20:00 80 10/02/16 15:36 97.8 88 20 142/82 95 10/02/16 14:00 97.4 84 16 126/78 98 Room Air 10/02/16 13:45 86 15 115/68 97 Room Air 10/02/16 13:30 97.4 79 16 140/84 100 Room Air 10/02/16 08:29 97.8 82 18 127/70 98 I/O 10/02/16 10/02/16 10/02/16 10/03/16 10/03/16 10/03/16 07:00 15:00 23:00 07:00 15:00 23:00 Intake Total 600 ml 240 ml Balance 600 ml 240 ml Intake Oral 240 ml Other 600 ml # Voids 1 Result Diagram: 10/02/16 0854 10/02/16 0854 Imaging Last Impressions Myocardial Perfusion Scan Nuc Med 10/01/16 0000 Signed Impressions: Service Date/Time: September 09:11 - CONCLUSION: 1. Mild apical thinning with no reversibility to suggest ischemia. 2. Excellent wall motion throughout with an estimated ejection fraction of 70%%. RISK CATEGORY: Low (<1%% Annual Mortality Rate) Duncan Weeks MD Abdomen/Pelvis CT 10/01/16 0000 Signed Impressions: Service Date/Time: September 15:05 - CONCLUSION: 1. Nonspecific, nonobstructive bowel gas pattern which may represent ileus or gastroenteritis. 2. Status post cholecystectomy with stable prominence of the biliary system. 3. Stable left ovarian cyst which is changed in position. 4. Postsurgical changes status post gastric surgery. Monster Drummond MD Chest X-Ray 09/30/16 1036 Signed Impressions: Service Date/Time: Friday, September 30, 2016 10:53 - CONCLUSION: No acute disease. Tyson Iqbal MD FACR Objective Remarks General: Lying in bed sleeping Skin: Midline vertical abdominal incision present over epigastric area. Chest: No pain to palpation of chest wall CV: Normal perfusion grossly. Normal rate and rhythm. Respiratory: Normal rate; CTAB GI: Tender to palpation in epigastric/mid abdominal region without rebound. + tenderness in left lower quadrant. No palpable hepatosplenomegaly. +BS present. EXT: Grossly normal motor function and ROM Neuro: Grossly normal CN, grossly normal motor and sensory function A/P Assessment and Plan Ms. Liang is a 55 yo F with: Discharge Planning D/C is pending recommendations by GI. Problem List: (1) Chronic abdominal pain Status: Chronic Plan: Appreciate GI consult and recommendations - IV PPI with Protonix 40 mg daily - EGD/colonoscopy significant for: Surgical changes within the stomach consistent with gastric bypass unremarkable within normal limits, and the stenosis appeared to be inflamed erythematous, with an ulcer no visible vessel, stricture was present, no dilation was done at this point due to the presence of the ulcer. Small bowel was unable to be evaluated. Colonoscopy was within normal limits. Recommendations concerning this are pending. CT abdomen/pelvis: Nonspecific, nonobstructive bowel gas pattern which may represent ileus or gastroenteritis. Status post cholecystectomy with stable prominence of the biliary system. Stable left ovarian cyst which is unchanged in position. Postsurgical changes status post gastric surgery. Lab work has been unremarkable: CMP within normal limits Lipase within normal limits at 175 CBC wnl Pain control: - Acetaminophen 1000 mg IV every 8 hours as needed - Morphine 2 mg IV every 4 hours as needed (2) Chest pain Status: Resolved Plan: Cardiac troponins negative 3 with stable EKG - Nuclear stress test 10/01- normal EF, low risk without suggestion of reversible defects. - EKG x2- borderline R axis deviation; no concerning ST changes - Troponins- x3 wnl (3) Depression Status: Chronic Plan: -Discussed initiation of another antidepressant with patient; patient agreeable to starting -Will plan to initiate antidepressant prior to discharge (4) Anxiety Status: Chronic Plan: -Continue home Xanax (5) DVT Prophylaxis Status: Acute Plan: -Bilateral SCD's prior endoscopy/colonoscopy (6) Fluids, Electrolytes, and Nutrition Status: Acute Plan: Fluids: Will give maintenance IVF due to decreased oral intake Diet: Heart healthy Electrolytes: CMP wnl; will monitor Problem Qualifiers (1) Depression: Komal Miner MD R3 Oct 03, 2016 06:23
[2016-10-03] MEDS: SODIUM CHLOR 0.9% 1000 ML INJ 1,000 ML IV SCH (06:28)
[2016-10-03 06:58] LABS: BACTERIA, URINE RARE /hpf; BLOOD, URINE NEG (NEG); COMMENT (UR) CULT NOT INDICATED; CULTURE IF INDICATED CULT NOT INDICATED; GLUCOSE,URINE NEG (NEG); KETONE, URINE 80 mg/dL (NEG); MUCUS URINE FEW /lpf (OCC); NITRITE,URINE NEG (NEG); SQUAMOUS EPITHELIAL CELL URINE 1 /hpf (0-5); URINE COLOR YELLOW (YELLW/STRAW)
[2016-10-03 07:01] LABS: HEMATOCRIT 31.4 % (35.0-46.0); MEAN CELL VOLUME 80.1 FL (80.0-100.0); MEAN CORPUSCULAR HEMOGLOBIN 25.9 PG (27.0-34.0); MEAN CORPUSCULAR HGB CONC 32.4 % (32.0-36.0); PLATELET COUNT 187 TH/MM3 (150-450); RED BLOOD COUNT 3.92 MIL/MM3 (4.00-5.30); RED CELL DISTRIBUTION WIDTH 15.1 % (11.6-17.2); REVIEW FLAG FINAL; WHITE BLOOD COUNT 5.9 TH/MM3 (4.0-11.0)
[2016-10-03 08:37] VITALS: BP 107/72; PULSE 57; RESP 18; TEMP 98.2; O2SAT 96
[2016-10-03] MEDS: SODIUM CHLORIDE 0.9% FLUSH 10 ML FLUSH IV FLUSH SCH (08:42)
[2016-10-03] MEDS: DOCUSATE SODIUM 50 MG/SENNA 8.6 MG TAB PO SCH (09:00)
--- NOTE | 2016-10-03 09:37 | HHI.GIFU ---
Subjective Remarks 55 yo female lying in bed in no apparent distress. Reports that she continues to have epigastric abdominal pain that is constantly present, pain radiates to L side of abdomen. She describes the pain like being "stabbed with a knife." Continues to have nausea. She refused her Carafate medication last night because she states it is too difficult to swallow. (Marisol Subramanian) Objective Vitals I&O Vital Signs Date Time Temp Pulse Resp B/P Pulse Ox O2 Delivery O2 Flow Rate FiO2 10/03/16 08:37 98.2 57 18 107/72 96 10/03/16 04:00 97.8 69 20 130/60 96 10/03/16 00:00 97.6 65 20 104/52 98 10/02/16 20:45 98.1 67 19 135/76 95 10/02/16 20:00 80 10/02/16 15:36 97.8 88 20 142/82 95 10/02/16 14:00 97.4 84 16 126/78 98 Room Air 10/02/16 13:45 86 15 115/68 97 Room Air 10/02/16 13:30 97.4 79 16 140/84 100 Room Air I/O 10/02/16 10/02/16 10/02/16 10/03/16 10/03/16 10/03/16 07:00 15:00 23:00 07:00 15:00 23:00 Intake Total 600 ml 240 ml Balance 600 ml 240 ml Intake Oral 240 ml Other 600 ml # Voids 1 Laboratory Laboratory Tests Test 10/03/16 10/03/16 05:35 06:00 White Blood Count 5.9 Red Blood Count 3.92 Hemoglobin 10.2 Hematocrit 31.4 Mean Corpuscular Volume 80.1 Mean Corpuscular Hemoglobin 25.9 Mean Corpuscular Hemoglobin 32.4 Concent Red Cell Distribution Width 15.1 Platelet Count 187 Mean Platelet Volume 8.4 Urine Color YELLOW Urine Turbidity CLEAR Urine pH 6.0 Urine Specific Aragon 1.018 Urine Protein NEG Urine Glucose (UA) NEG Urine Ketones 80 Urine Occult Blood NEG Urine Nitrite NEG Urine Bilirubin NEG Urine Urobilinogen LESS THAN 2.0 Urine Leukocyte Esterase NEG Urine RBC 1 Urine WBC LESS THAN 1 Urine Squamous Epithelial 1 Cells Urine Bacteria RARE Urine Mucus FEW Microscopic Urinalysis Comment CULT NOT INDICATED Imaging Last Impressions Myocardial Perfusion Scan Nuc Med 10/01/16 0000 Signed Impressions: Service Date/Time: September 09:11 - CONCLUSION: 1. Mild apical thinning with no reversibility to suggest ischemia. 2. Excellent wall motion throughout with an estimated ejection fraction of 70%%. RISK CATEGORY: Low (<1%% Annual Mortality Rate) Duncan Weeks MD Abdomen/Pelvis CT 10/01/16 0000 Signed Impressions: Service Date/Time: September 15:05 - CONCLUSION: 1. Nonspecific, nonobstructive bowel gas pattern which may represent ileus or gastroenteritis. 2. Status post cholecystectomy with stable prominence of the biliary system. 3. Stable left ovarian cyst which is changed in position. 4. Postsurgical changes status post gastric surgery. Monster Drummond MD Chest X-Ray 09/30/16 1036 Signed Impressions: Service Date/Time: Friday, September 30, 2016 10:53 - CONCLUSION: No acute disease. Tyson Iqbal MD FACR Physical Exam HEENT: PERRLA NECK: Neck is supple, no JVD, no lymphadenopathy. CHEST: CTA CARDIAC: RRR ABDOMEN: Soft, nondistended. Diffuse abdominal tenderness on palpation. Bowel sounds presents x 4 quadrants EXTREMITIES: No clubbing, cyanosis, or edema. SKIN: Normal; no rash; no jaundice. FURNACE LOADER: No focal deficits; A & O x3. (Marisol Subramanian) Assessment and Plan Plan ASSESSMENT: - Acute on chronic abdominal pain with nausea/vomiting, bloating. Hx of this x 6 -8 years, previously evaluated with EGD in 2014, Colonoscopy 2012, Sitz Markers, Gastric Emptying Scan, KUBs, CT scans. SHe is s/p cholecystectomy. She has been tried on PPI's, Librax, Bentyl, Xifaxan, Creon, PPIs, but states nothing really helps. She was seen by Dr. Bojorquez in the past but states she was discharged from their practice. This latest episode began on September 08- constant mid abdominal pain, radiating to epigastric area and chest with n/v with undigested food, 12 lbs wt. loss. She reports that she has gastroparesis, not currently on meds. States she has adhesions from multiple abdominal surgeries and has had SAHIL x3. LFT normal. Lipase normal. Abdomen/Pelvis CT 10/01/16-- 1.Nonspecific, nonobstructive bowel gas pattern which may represent ileus or gastroenteritis. 2. Status post cholecystectomy with stable prominence of the biliary system. 3. Stable left ovarian cyst which is changed in position. 4. Postsurgical changes status post gastric surgery. EGD/Colonoscopy 10/02--The esophagus was normal. The stomach there were surgical changes consistent with gastric bypass the gastric pouch appeared to be unremarkable and within normal limits the anastomosis appeared to be inflamed erythremic with an ulcer no visible vessel and strictured. Biopsies were taken no dilation was done at this point due to the presence of the ulcer. Normal colonoscopy. Biopsies pending Patient refused Carafate medication last night bc too difficult to swallow. - Constipation with hx of impactions. She takes Miralax in hot water or chamomile tea and recently started taking pericolace. She typically moves her bowels 1-2 times a week and last did 1.5 days ago. There is no blood or mucous. - Gastroparesis, not currently on meds other than a laxative. - Chest pain, atypical. Myocardial Perfusion Scan Nuc Med 10/01/16--1. Mild apical thinning with no reversibility to suggest ischemia. 2. Excellent wall motion throughout with an estimated ejection fraction of 70%%. RISK CATEGORY: Low (<1%% Annual Mortality Rate) - Anxiety per primary. PLAN: - Awaiting biopsy results - EGD w/ dilation in 2 months - Puree Diet - Will order Carafate liquid - PPI - Monitor labs - Supportive care - Further recommendations to follow based on results of above Patient seen and examined by Dr. Hua and myself and this note is written on his behalf (Marisol Subramanian) Physician Comments Patient seen and examined Agree with above Continue with current supportive care Monitor labs Okay for DC from a GI standpoint Follow-up with GI in 2-3 weeks (Kane Hua MD) Marisol Subramanian Oct 03, 2016 09:37 Kane Hua MD Oct 03, 2016 12:47
[2016-10-03 12:16] VITALS: BP 97/64; PULSE 62; RESP 18; TEMP 97.9; O2SAT 95
[2016-10-03] MEDS: SUCRALFATE 1 GM/10 ML CUP PO SCH ×2 (13:14→17:39)
[2016-10-03 14:00] VITALS: PULSE 57
[2016-10-03 16:22] VITALS: BP 128/75; PULSE 69; RESP 18; TEMP 97.8; O2SAT 95
[2016-10-03] MEDS: PANTOPRAZOLE SODIUM 40 MG VIAL IV PUSH SCH (17:00)
[2016-10-03] MEDS ORDERED: OMEP40CA2 PO (17:07)
[2016-10-03] MEDS ORDERED: SUCR1TAB PO (17:07)
--- NOTE | 2016-10-03 17:11 | HHI.DCPOC ---
Discharge Care Plan Diagnosis: (1) Gastric ulcer (2) Gastric anastomotic stricture Goals to Promote Your Health * To prevent worsening of your condition and complications, please take medications as prescribed. * To maintain your health at the optimal level, please follow up as instructed. Directions to Meet Your Goals Take your medications as prescribed Follow your dietary instruction Follow activity as directed Keep your appointments as scheduled Take your immunizations and boosters as scheduled If your symptoms worsen call your PCP, if no PCP go to Urgent Care Center or Emergency Room Smoking is Dangerous to Your Health. Avoid second hand smoke Call the 24-hour hour crisis hotline for domestic abuse at Monster Huber MD R1 Oct 03, 2016 17:11
--- NOTE | 2016-10-03 17:12 | HHI.DCPOC ---
Discharge Care Plan Diagnosis: (1) Chronic abdominal pain Goals to Promote Your Health * To prevent worsening of your condition and complications, please take medications as prescribed. * To maintain your health at the optimal level, please follow-up with doctors as instructed. Directions to Meet Your Goals Take your medications as prescribed Follow your dietary instruction Follow activity as directed Keep your appointments as scheduled Take your immunizations and boosters as scheduled If your symptoms worsen call your PCP, if no PCP go to Urgent Care Center or Emergency Room Smoking is Dangerous to Your Health. Avoid second hand smoke Call the 24-hour hour crisis hotline for domestic abuse at Monster Huber MD R1 Oct 03, 2016 17:12
--- NOTE | 2016-10-27 10:45 | HHI.DS ---
Discharge Summary Admission Date Sep 30, 2016 at 11:57 Discharge Date: Oct 03, 2016 Admitting Diagnosis chest pain (1) Chronic abdominal pain Diagnosis: Principal Plan: Appreciate GI consult and recommendations - IV PPI with Protonix 40 mg daily - EGD/colonoscopy significant for: Surgical changes within the stomach consistent with gastric bypass unremarkable within normal limits, and the stenosis appeared to be inflamed erythematous, with an ulcer no visible vessel, stricture was present, no dilation was done at this point due to the presence of the ulcer. Small bowel was unable to be evaluated. Colonoscopy was within normal limits. Recommendations concerning this are pending. CT abdomen/pelvis: Nonspecific, nonobstructive bowel gas pattern which may represent ileus or gastroenteritis. Status post cholecystectomy with stable prominence of the biliary system. Stable left ovarian cyst which is unchanged in position. Postsurgical changes status post gastric surgery. Lab work has been unremarkable: CMP within normal limits Lipase within normal limits at 175 CBC wnl Pain control: - Acetaminophen 1000 mg IV every 8 hours as needed - Morphine 2 mg IV every 4 hours as needed (2) Chest pain Diagnosis: Principal Plan: Cardiac troponins negative 3 with stable EKG - Nuclear stress test 10/01- normal EF, low risk without suggestion of reversible defects. - EKG x2- borderline R axis deviation; no concerning ST changes - Troponins- x3 wnl (3) Depression Diagnosis: Secondary Plan: -Discussed initiation of another antidepressant with patient; patient agreeable to starting -Will plan to initiate antidepressant prior to discharge (4) Anxiety Diagnosis: Secondary Plan: -Continue home Xanax (5) DVT Prophylaxis Diagnosis: Secondary Plan: -Bilateral SCD's prior endoscopy/colonoscopy (6) Fluids, Electrolytes, and Nutrition Plan: Fluids: Will give maintenance IVF due to decreased oral intake Diet: Heart healthy Electrolytes: CMP wnl; will monitor Consultants GI Brief History Per EMR Review: Ms. Liang is a 55 yo F with PMH gastroparesis, abdominal pain s/p multiple intraperitoneal surgeries and subsequent lysis of adhesions patient of Dr. Mejia who presented to [facility] 09/30 due to symptoms of abdominal pain and substernal chest pain radiating down left arm, anxiety, and nausea. Patient was assessed for acute coronary syndrome with EKG and troponin measurement; these were reassuring (EKG with only borderline R axis deviation) so patient was admitted to chest pain center for further evaluation of new onset chest pain. Nuclear stress test performed and was deemed low risk due to normal EF without suggestion of reversible perfusion deficits; repeat EKG/troponins also reassuring. Regarding patient's abdominal pain, patient is had a history of persistent nausea/vomiting/pain in association of weight loss for the past month; she has history of chronic gastroparesis, abdominal pain, and prior fecal impaction. Patient recently referred to product test specialist by Dr. Medellin at recent clinic visit 09/22. Patient reportedly has not had recent GI evaluation with endoscopy since 2014 and symptoms of an refractory to multiple treatment modalities including PPI and Creon; per GI patient will be assessed with CT abdomen/pelvis and endoscopy/colonoscopy 10/02. Family medicine consulted for hospitalist management while inpatient. Patient reports that she feels like there is "something wrong" with her stomach since September 2016; since 09/06 patient has had burning sensation when drinking and has been unable to eat due to persistent vomiting. Patient feels "burn"ing sensation behind her sternum and extending to the center of her stomach immediately after drinking hot water. Patient does get this sensation with food but vomits within 10-15 min of eating. Patient reports that she generally has a restricted diet due to history of gastroparesis but that since 09/06, she that the "burning" pain she experiences is a new type of pain for her. Patient has had small quantities of stool when straining since September ~weekly; previously bowel movements were "greasy" and floating but still ~weekly. Patient states that her pain is also severe at night and central; this is different than burning sensation and not associated with oral intake. patient states that she hears "loud" digestive "noises."Since pain started in September, Zofran and Reglan did not work for vomiting. Ranitidine did not work for pain but "calmed" stomach for "about an hour." Patient also reports Creon ineffective. Patient reports that she still feels chest pain at this time which is L sided but is more located around her L shoulder and not radiating down L arm. Patient reports chills, hot flashes but states that she takes Estradiol for menopausal symptoms for a couple years. Patient reports mild SOB which is new. Patient states that her urine is malodorous. Patient reports depression and crying due to pain. Patient also takes Xanax for anxiety. Patient states that despite pain she doesn 't take prescribed Percocet for fear of impaction. Patient takes Pericolace due to constipation. Patient reports depression and that she is interested in medical management. Patient denies suicidal ideation but states that she does not want to live with pain. Patient states that her adhesions were last lysed in 01/2016; adhesions were different and were a "tugging" discomfort rather than pain. Prior EGD/ Colonoscopy several years ago reportedly looked ok. Patient also reports barium studies were reassuring in 2014. PE at Discharge General: Lying in bed sleeping Skin: Midline vertical abdominal incision present over epigastric area. Chest: No pain to palpation of chest wall CV: Normal perfusion grossly. Normal rate and rhythm. Respiratory: Normal rate; CTAB GI: Tender to palpation in epigastric/mid abdominal region without rebound. + tenderness in left lower quadrant. No palpable hepatosplenomegaly. +BS present. EXT: Grossly normal motor function and ROM Neuro: Grossly normal CN, grossly normal motor and sensory function Hospital Course Patient originally admitted to the hospital with chest pain. Was admitted to the chest pain center. ACS ruled out. Care has been transferred to the medicine service for her recurrent abdominal pain. Patient has history of gastric bypass. EGD was performed and this showed some inflammation stenosis. Dilation was not done due to presence of ulcer. Was recommended that her ulcer be treated, and repeat EGD be performed in 2 months and dilation if applicable. Patient was discharged home in stable condition. Follow up with GI. Pt Condition on Discharge: Stable Discharge Disposition: Discharge Home Discharge Instructions DIET: Follow Instructions for: As Tolerated, No Restrictions Activities you can perform: Regular-No Restrictions Follow up Referrals: Gastroenterology - 2 Weeks PCP Follow-up - 1 Week New Medications: Omeprazole (Omeprazole) 40 Mg Cap 40 MG PO DAILY #30 Ref 0 CAP Sucralfate (Sucralfate) 1 Gm Tab 1 GM PO QID Take on empty stomach before meals and before bed Duodenal ulcer # 120 Ref 0 TAB Continued Medications: Alprazolam (Xanax) 1 Mg Tab 1 MG PO Q6H PRN ANXIETY Ref 0 TAB Estradiol (Estradiol) 1 Mg Tab 1 MG PO DAILY Estrogen Supplements #30 Ref 5 TAB Oxycodone-Acetaminophen (Percocet) 5-325 mg Tab 1 TAB PO Q6H PRN BREAKTHROUGH PAIN #30 Ref 0 TAB Sennosides-Docusate Sodium (Chayito-Colace) 8.6-50 Mg Tab 2 TAB PO DAILY May increased dose to BID, as needed to acheive regular BM's Constipation #60 Ref 3 TAB Discontinued Medications: Ranitidine (Ranitidine) 150 Mg Tab 150 MG PO BID Heartburn Management #60 Ref 0 TAB Komal Miner MD R3 October 27, 2016 10:45
[2016-10-28] MEDS ORDERED: PROC5TAB PO (14:56)
[2016-10-28] MEDS ORDERED: AMIT8CAP6 PO (14:56)
[2016-10-28] MEDS ORDERED: OMEP40CA2 PO (14:56)
[2016-10-28] MEDS ORDERED: XANA1TAB2 PO (14:58)
== END 2016-10-03 18:41 | disposition home or self-care (01) ==
LOC: NEPE 10:01 → NEDA 11:57 → NEPFCDU 15:33
PROVIDERS: ADMIT Family Medicine; ATTEND Family Medicine
DX: K28.9 Gastrojejunal ulcer, unspecified as acute or chronic, without hemorrhage or perforation (principal); K31.89 Other diseases of stomach and duodenum; F41.9 Anxiety disorder, unspecified; R07.89 Other chest pain; I10 Essential (primary) hypertension; K59.00 Constipation, unspecified; F32.9 Major depressive disorder, single episode, unspecified; N83.202 Unspecified ovarian cyst, left side; Z98.84 Bariatric surgery status; Z90.49 Acquired absence of other specified parts of digestive tract
CPT/HCPCS: 43239; 45378; 71010; 74177; 78452; 80048; 80053; 81001; 82550; 83690; 83735; 84484; 85025; 85027; 85610; 85730; 88305; 93005; 93017; 99285; A9502; C9113; G0378; J0131; J0280; J2405; J2785; J7030; Q9963; Q9967; 88307